=== PATIENT | female | born 1945 | race Caucasian/White ===

== ENCOUNTER → 2022-11-25 13:16 | Outpatient (BNVA) | payer MEDICARE, SELFPAY | PROVIDERS: PCP Internal Medicine; Visit Provider Nurse Practitioner Family | DX: R05.3 Chronic cough (principal); R06.09 Other forms of dyspnea; J45.909 Unspecified asthma, uncomplicated; G47.33 Obstructive sleep apnea (adult) (pediatric); R76.8 Other specified abnormal immunological findings in serum; Z87.891 Personal history of nicotine dependence; Z99.89 Dependence on other enabling machines and devices | CPT/HCPCS: 99202 ==

== ENCOUNTER 2022-12-02 10:30 | Outpatient (REF) | payer MEDICARE, SELFPAY ==
--- NOTE | 2022-12-02 | PFT_ITS ---
Forced vital capacity 89%, FEV1 90%, FEV1 over FVC ratio is 76. MGA80-21, 96% and MVV is 68%. Post bronchodilator therapy, there is no change. Total lung capacity could not be performed due to lack of adequate maneuver, SVC is 94%. DLCO 58% and DL/VA is 61%. CLINICAL IMPRESSION: Spirometry findings are normal, except for slight decrease in maximal voluntary ventilation. No evidence of any obstructive or restrictive pulmonary disorder. Decreased diffusing capacity of lungs for carbon monoxide is probably due to technical reason or secondary to non pulmonary factors. For this, clinical correlation is recommended. MD EVELIO Donnelly/AZAM / [id number]
== END 2022-12-02 10:31 | disposition home or self-care (01) ==
LOC: HO.RESP 10:30
PROVIDERS: Visit Provider Nurse Practitioner Family
DX: J44.9 Chronic obstructive pulmonary disease, unspecified (principal)
CPT/HCPCS: 94060; 94727; 94729

== ENCOUNTER → 2022-12-02 10:30 | Outpatient (BNV) | payer MEDICARE, SELFPAY | PROVIDERS: Visit Provider Internal Medicine | DX: R06.09 Other forms of dyspnea (principal) | CPT/HCPCS: 94060; 94727; 94729 ==

== ENCOUNTER 2022-12-13 10:46 | Outpatient (AMB) | payer MEDICARE, SELFPAY ==
[2022-12-13 10:52] VITALS: BP 130/66; PULSE 80; O2SAT 98; BMI 29.9
--- NOTE | 2022-12-13 10:52 | MHC.OFFVIS ---
Intake Vital Signs 12/13/22 10:52 Height 5 ft 6 in Weight 185 lb 3.013 oz BMI 29.9 BP 130/66 Blood Pressure Location Lt brachial Position Sitting Pulse 80 Pulse Source Pulse Oximeter Pulse Oximetry (%) 98 Oxygen Delivery Method Room Air Intake Visit Reasons: Asthma Clinical Psychologist Private Practice Required: No Top Bottom Attaching Machine Operator: Top Bottom Attaching Machine Operator offered & declined Accompanied by: Self / Same As Patient Allergies demerol Allergy (Uncoded 12/13/22 10:53) Vomiting levoquin Allergy (Uncoded 12/13/22 10:53) rash salon pas Allergy (Uncoded 12/13/22 10:53) Blister Medication List - Last Reconciled 12/13/22 by Shahrzad Santana LPN albuterol sulfate 90 mcg/actuation 2 puffs inhalation Q4-6H PRN aspirin 81 mg PO DAILY cholecalciferol (vitamin D3) 25 mcg PO DAILY cyanocobalamin (vitamin B-12) 1,000 mcg PO DAILY duloxetine 60 mg PO DAILY folic acid 1 mg PO DAILY isosorbide mononitrate ER 60 mg PO DAILY lifitegrast 5% (Xiidra) 1 drp ophthalmic (eye) BID lorazepam 2 mg PO BEDTIME PRN pantoprazole 40 mg PO BID propranolol ER 80 mg PO DAILY rosuvastatin 20 mg PO DAILY HPI Asthma HPI Details Stephanie is a pleasant 77 year old female, minimal smoker, with underlying history of asthma, GERD, FREDIS +, MER on CPAP, and 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 Today she presents for review PFT results, report below. She reports worsening dyspnea on minimal exertion, such as performing ADLs. She was seen at [facility] ED due to persistent cough that was worsening in severity and duration. CXR was negative for any acute processes and she was prescribed Atrovent and albuterol for bronchitis. Today, she reported that she has a history of Sjogren's and has significant dry mouth which is why she has been unable to tolerate ICS in the past. She denies any recent chest CT. She also is requesting to transfer care related to her obstructive sleep apnea. She reports daytime somnolence and loud snoring when CPAP is not used. She reports no recent sleep study. [facility] Social History Patient Tobacco Use Status: Former Tobacco user Tobacco use type: Cigarette Years Smoked: Smoked for 2years intermittently. Review of Systems Const Denies chills, Denies excessive sweating, Denies fever(s), Denies headache(s) and Denies night sweats Eyes Reports dry eyes and Denies irritation ENT Reports Normal hearing present, Reports dry mouth, Denies headache(s), Denies nasal congestion, Denies nasal discharge, Denies post nasal drip and Denies sore throat Card Denies chest pain, Denies chest pain at rest, Denies chest pain with activity, Denies leg edema, Denies orthopnea and Denies paroxysmal nocturnal dyspnea Resp Denies chest congestion, Denies excessive phlegm production, Denies pain on inspiration, Denies pain with cough, Denies stridor and Denies wheezing Musc Denies myalgias, Reports arthralgias and Denies joint swelling Neuro Reports Normal hearing present and Denies headache(s) Endo Denies excessive sweating Bhaskar/Lymph Denies lymphadenopathy Aller/Immun Denies seasonal rhinorrhea and Denies wheezing Physical Exam Vital Signs: Last Vital Signs Pulse 80 12/13/22 10:52 BP 130/66 12/13/22 10:52 Pulse Ox 98 12/13/22 10:52 Oxygen Delivery Method Room Air 12/13/22 10:52 BMI result Body Mass Index 29.9 Const General: cooperative, healthy appearing, comfortable, no acute distress, well developed and alert Orientation/consciousness: patient oriented x3 Limitations: no limitations HEENT Head: Yes normal to inspection, Yes normocephalic and Yes atraumatic Ears: hearing grossly normal bilaterally and external ears normal Eyes General: appearance normal, both eyes and all related structures Eyelids: Yes eyelids normal Sclerae: sclerae normal EOM: EOMs intact bilaterally Neck Neck: Yes normal visual inspection and Yes no lymphadenopathy Lymphatic: no lymphadenopathy noted Chest Chest palpation & inspection: normal inspection of the chest Resp Other: fine inspiratory crackles at bilateral bases Effort & Inspection: normal respiratory effort, able to speak in complete sentences, no audible wheezes, no cough, no stridor, not tachypneic, no tripod positioning and no use of accessory muscles Cardio Jugular venous distension: no JVD Rate: regular rate Rhythm: regular rhythm Skin Other: warm, dry General skin exam: no rashes or lesions noted Neuro General: patient oriented x3 Cranial nerves: Yes Normal hearing present Cognition (Neuro): normal cognition Gait exam (Neuro): Normal gait present Extrem General: Yes normal to inspection, Yes capillary refill normal, Yes no clubbing, cyanosis or edema and Yes no pedal edema Psych Appearance: grossly normal and well kempt Speech and movement: Normal speech and movement present and Clear speech present Affect: normal affect Attitude: cooperative Thought process: Normal thought process present Thought content: Normal thought content present Insight: Good insight present (Psych) Judgement: Good judgement present (Psych) Office Procedures 6 Minute Walk Time:: 11:35 SPO2 % at rest: 96 Pulse at rest: 68 SPO2 % during excercise: 96 Pulse during excercise: 82 SPO2 % after excercise: 97 Pulse after excercise: 86 Distance in yards walked: 75 Doris Score: 5 Performance Observations:: Patient walked on level ground at a moderate pace with the assistance of a cane for 75 yards. Maintained SPO2 of 96-97% and pulse rate 78-82. Patient mentions she was feeling short of breath with distance walking. No supplemental O2 needed. [address]143 - 6 Minute Walk Results Reviewed Results Reviewed: Assessment & Plan Assessment & Plan (1) Dyspnea on exertion: Code(s): R06.09 - Other forms of dyspnea (2) Sjogren's disease: Code(s): M35.00 - Sjogren syndrome, unspecified (3) Cough: Code(s): R05.9 - Cough, unspecified (4) Daytime somnolence: Code(s): R40.0 - Somnolence Plan Since the last visit, Stephanie did report some improvement in the frequency of her cough and noted dyspnea on exertion is most troublesome. Performed 6MWT and patient does not qualify for oxygen at this time. She does check her oxygen saturation at home and reports the lowest has been 92%. Reviewed PFT which revealed no obstructive or restrictive defect but does have a decreased DLCO of 58. We discussed the possibility of her symptoms being related to sjogren's and possible ILD, as she had inspiratory faint crackles on exam. Will send for lab work as well as chest CT to thoroughly evaluate. We reviewed different inhalers to trial empirically, but hesitant due to prior history of thrush despite good oral hygiene. She reported issues with prior sleep clinic and would like to continue care here. Due to her significant day time somnolence, will send for new home sleep study. Will follow up after to review results. All questions were answered and patient is in agreement of plan. Orders: Orders Anti DNA DS Antibody 12/13/22 M35.00 - Sjogren syndrome, unspecified Sjogren's Antibodies 12/13/22 M35.00 - Sjogren syndrome, unspecified Scleroderma 70 Antibody 12/13/22 M35.00 - Sjogren syndrome, unspecified, R76.8 - Other specified abnormal immunological findings in serum CT chest wo IV con 12/13/22 J84.9 - Interstitial pulmonary disease, unspecified RT home sleep study Today R40.0 - Somnolence AMB 6 minute walk 12/13/22 R06.09 - Other forms of dyspnea Coding Level of Care Code Est Pt Level 4 (63107) Diagnoses Dyspnea on exertion R06.09 Sjogren's disease M35.00 Cough R05.9 Daytime somnolence R40.0 CPT Codes Coding ([id number])
[2022-12-13 11:49] VITALS: PULSE 68; O2SAT 96
== END 2022-12-13 12:18 | disposition home or self-care (01) ==
PROVIDERS: PCP Internal Medicine; Visit Provider Nurse Practitioner Family
DX: R06.02 Shortness of breath (principal)
CPT/HCPCS: 94618; 99214

== ENCOUNTER → 2022-12-13 10:46 | Outpatient (BNVA) | payer MEDICARE, SELFPAY | PROVIDERS: PCP Internal Medicine; Visit Provider Nurse Practitioner Family | DX: M35.00 Sjogren syndrome, unspecified (principal); R06.09 Other forms of dyspnea; R05.9 Cough, unspecified; R40.0 Somnolence | CPT/HCPCS: 94618; 99212 ==

== ENCOUNTER 2023-01-02 10:19 | Outpatient (REF) | payer MEDICARE, SELFPAY ==
[2023-01-03 13:48] LABS: Anti DNA DS Antibody <1 IU/mL; Antibody to SS-A Antigen <1.0 NEG AI (<1.0 NEG); Antibody to SS-B Antigen <1.0 NEG AI (<1.0 NEG); Scleroderma 70 Antibody <1.0 NEG AI (<1.0 NEG)
== END 2023-01-02 10:20 | disposition home or self-care (01) ==
LOC: HO.LAB 10:19
PROVIDERS: PCP Internal Medicine; Visit Provider Nurse Practitioner Family
DX: M35.00 Sjogren syndrome, unspecified (principal); R76.8 Other specified abnormal immunological findings in serum
CPT/HCPCS: 36415; 86225; 86235

== ENCOUNTER 2023-01-18 08:23 | Outpatient (REF) | payer MEDICARE, SELFPAY ==
--- NOTE | ~2023-01-18 | CT_ITS ---
EXAMINATION: CT CHEST HIGH RESOLUTION CLINICAL INFORMATION: Interstitial lung disease. COMPARISON: None available. TECHNIQUE: Using a multidetector device, helical inspiratory views of the chest were done without contrast. Expiratory views were done using high-resolution technique. Reformatting was done in the coronal and parasagittal planes. Axial MIP volume rendering provided. This CT examination was performed using dose optimization techniques as appropriate, variously including the following: *Automated exposure control *Adjustment of mA and/or kV according to patient size (this includes techniques or standardized protocols for targeted exams where dose is matched to indication/reason for exam; i.e. 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 There are no enlarged mediastinal or hilar lymph nodes. There is no pericardial or significant pleural fluid. There is minimal coronary artery calcification. There is no abnormality of the central airways. There is no evidence of bronchiectasis. There is no generalized thickening of the interlobular septi. There is no pleural thickening. There are no significant cystic spaces. There is no evidence of medium or small airway thickening. There are no linear bands or abnormal reticular opacities. There is some trace density adjacent to the dependent lower chest which may be atelectasis. There is no ground-glass disease. Calcification is present along the dome of the liver. The adrenal glands appear unremarkable. The gallbladder has been surgically removed. CT/CT chest wo IV con IMPRESSION: No evidence of interstitial lung disease.
== END 2023-01-18 08:24 | disposition home or self-care (01) ==
LOC: HO.CT 08:23
PROVIDERS: PCP Internal Medicine; Visit Provider Nurse Practitioner Family
DX: J84.9 Interstitial pulmonary disease, unspecified (principal); R40.0 Somnolence; G47.33 Obstructive sleep apnea (adult) (pediatric)
CPT/HCPCS: 71250

== ENCOUNTER 2023-01-24 10:56 | Outpatient (AMB) | payer MEDICARE, SELFPAY ==
[2023-01-24 10:59] VITALS: BP 137/62; PULSE 67; O2SAT 95; BMI 29.7
--- NOTE | 2023-01-24 10:59 | A.OFFVIS_ITS ---
Intake Vital Signs 01/24/23 10:59 Height 5 ft 6 in Weight 184 lb 1.376 oz BMI 29.7 BP 137/62 Blood Pressure Location Rt brachial Position Sitting Pulse 67 Pulse Source Doppler Pulse Oximetry (%) 95 Oxygen Delivery Method Room Air Intake Visit Reasons: asthma Allergies demerol Allergy (Uncoded 12/13/22 10:53) Vomiting levoquin Allergy (Uncoded 12/13/22 10:53) rash salon pas Allergy (Uncoded 12/13/22 10:53) Blister HPI asthma HPI Details Stephanie is a pleasant 77 year old female, minimal smoker, with underlying history of asthma, GERD, FREDIS +, Sjogren's, MER on CPAP. Since the last visit, she has been using Breo with significant improvements in shortness of breath as well as cough. Initially she did not want to trial an ICS due to multiple occurrences of thrush in the past. She states her PCP prescribes daily flucon azole and has been practicing good oral hygiene. Today she presents to review results of chest CT. She also had a sleep study performed but report is not available at this time. She has been using CPAP therapy and uses [employer] for her [employer]. [facility] Social History Patient Tobacco Use Status: Former Tobacco user Tobacco use type: Cigarette Years Smoked: Smoked for 2years intermittently. Review of Systems Const Denies chills, Denies excessive sweating, Denies fever(s), Denies headache(s) and Denies night sweats Eyes Reports dry eyes and Denies irritation ENT Reports Normal hearing present, Reports dry mouth, Denies headache(s), Denies nasal congestion, Denies nasal discharge, Denies post nasal drip and Denies sore throat Card Denies chest pain, Denies chest pain at rest, Denies chest pain with activity, Denies leg edema, Denies orthopnea and Denies paroxysmal nocturnal dyspnea Resp Denies chest congestion, Denies excessive phlegm production, Denies pain on inspiration, Denies pain with cough, Denies stridor and Denies wheezing Musc Denies myalgias, Reports arthralgias and Denies joint swelling Neuro Reports Normal hearing present and Denies headache(s) Endo Denies excessive sweating Bhaskar/Lymph Denies lymphadenopathy Aller/Immun Denies seasonal rhinorrhea and Denies wheezing Physical Exam Vital Signs: Last Vital Signs Pulse 67 01/24/23 10:59 BP 137/62 01/24/23 10:59 Pulse Ox 95 01/24/23 10:59 Oxygen Delivery Method Room Air 01/24/23 10:59 BMI result Body Mass Index 29.7 Const General: cooperative, healthy appearing, comfortable, no acute distress, well developed and alert Orientation/consciousness: patient oriented x3 Limitations: no limitations HEENT Head: Yes normal to inspection, Yes normocephalic and Yes atraumatic Ears: hearing grossly normal bilaterally and external ears normal Eyes General: appearance normal, both eyes and all related structures Eyelids: Yes eyelids normal Sclerae: sclerae normal EOM: EOMs intact bilaterally Neck Neck: Yes normal visual inspection and Yes no lymphadenopathy Lymphatic: no lymphadenopathy noted Chest Chest palpation & inspection: normal inspection of the chest Resp Effort & Inspection: normal respiratory effort, able to speak in complete sentences, no audible wheezes, no cough, no stridor, not tachypneic, no tripod positioning and no use of accessory muscles Cardio Jugular venous distension: no JVD Rate: regular rate Rhythm: regular rhythm Skin Other: warm, dry General skin exam: no rashes or lesions noted Neuro General: patient oriented x3 Cranial nerves: Yes Normal hearing present Cognition (Neuro): normal cognition Gait exam (Neuro): Normal gait present Extrem General: Yes normal to inspection, Yes capillary refill normal, Yes no clubbing, cyanosis or edema and Yes no pedal edema Psych Appearance: grossly normal and well kempt Speech and movement: Normal speech and movement present and Clear speech present Affect: normal affect Attitude: cooperative Thought process: Normal thought process present Thought content: Normal thought content present Insight: Good insight present (Psych) Judgement: Good judgement present (Psych) Results Reviewed Results Reviewed: [address] [address] [address] Scan Report Signed Patient: Stephanie Biswas MR#: [id number] : 1945 Acct:[id number] Age/Sex: 77 / F ADM Date: 01/18/23 Loc: HO.CT Attending Dr: Dannielle Covington CASHIER PAYMENTS RECEIVED Ordering Physician: Dannielle Covington NP Date of Service: 01/18/23 Procedure(s): CT chest wo IV con Accession Number(s): [id number] cc: Dannielle Covington CASHIER PAYMENTS RECEIVED~ EXAMINATION: CT CHEST HIGH RESOLUTION CLINICAL INFORMATION: Interstitial lung disease. COMPARISON: None available. TECHNIQUE: Using a multidetector device, helical inspiratory views of the chest were done without contrast. Expiratory views were done using high-resolution technique. Reformatting was done in the coronal and parasagittal planes. Axial MIP volume rendering provided.? This CT examination was performed using dose optimization techniques as appropriate, variously including the following: *Automated exposure control *Adjustment of mA and/or kV according to patient size (this includes techniques or standardized protocols for targeted exams where dose is matched to indication/reason for exam; i.e. 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 There are no enlarged mediastinal or hilar lymph nodes. There is no pericardial or significant pleural fluid. There is minimal coronary artery calcification. There is no abnormality of the central airways. There is no evidence of bronchiectasis. There is no generalized thickening of the interlobular septi. There is no pleural thickening. There are no significant cystic spaces. There is no evidence of medium or small airway thickening. There are no linear bands or abnormal reticular opacities. There is some trace density adjacent to the dependent lower chest which may be atelectasis. There is no ground-glass disease.? Calcification is present along the dome of the liver. The adrenal glands appear unremarkable. The gallbladder has been surgically removed. CT/CT chest wo IV con IMPRESSION: No evidence of interstitial lung disease. Assessment & Plan Assessment & Plan (1) Asthma: Code(s): J45.909 - Unspecified asthma, uncomplicated (2) Obstructive sleep apnea: Code(s): G47.33 - Obstructive sleep apnea (adult) (pediatric) (3) Sjogren's disease: Code(s): M35.00 - Sjogren syndrome, unspecified Plan Stephanie has been using Breo with good symptomatic control and denies any concerns of thrush. Will continue current regimen. Reviewed chest CT, which did not reveal any concerning nodules, consolidations or fibrosis. Full report above. She also underwent a sleep study but unfortunately the report is not available. Will call patient with results. She is currently using CPAP therapy that she has been using for over 5 years, prescribed by [facility] pulmonary and has supplies through [employer]. Will obtain compliance report. All questions were answered and patient is in agreement of plan. Will follow up in three months or sooner if needed. Coding Level of Care Code Est Pt Level 4 (45266) Diagnoses Asthma J45.909 Obstructive sleep apnea G47.33 Sjogren's disease M35.00
== END 2023-01-24 11:51 | disposition home or self-care (01) ==
PROVIDERS: PCP Internal Medicine; Visit Provider Nurse Practitioner Family
DX: J45.909 Unspecified asthma, uncomplicated (principal); G47.33 Obstructive sleep apnea (adult) (pediatric); M35.00 Sjogren syndrome, unspecified
CPT/HCPCS: 99214

== ENCOUNTER → 2023-01-24 10:56 | Outpatient (BNVA) | payer MEDICARE, SELFPAY | PROVIDERS: PCP Internal Medicine; Visit Provider Nurse Practitioner Family | DX: J45.909 Unspecified asthma, uncomplicated (principal); G47.33 Obstructive sleep apnea (adult) (pediatric); M35.00 Sjogren syndrome, unspecified; Z99.89 Dependence on other enabling machines and devices | CPT/HCPCS: 99212 ==

== ENCOUNTER 2023-04-25 11:32 | Outpatient (AMB) | payer MEDICARE, SELFPAY ==
[2023-04-25 11:32] VITALS: BP 114/62; PULSE 71; O2SAT 96; BMI 29.7
--- NOTE | 2023-04-25 11:32 | A.OFFVIS_ITS ---
Intake Vital Signs 04/25/23 11:32 Height 5 ft 6 in Weight 184 lb BMI 29.7 BP 114/62 Blood Pressure Location Lt brachial Position Sitting Pulse 71 Pulse Source Pulse Oximeter Pulse Oximetry (%) 96 Oxygen Delivery Method Room Air Intake Visit Reasons: Asthma Foreign Exchange Dealer Required: No Institutional Aide: Institutional Aide offered & declined Accompanied by: Self / Same As Patient Allergies demerol Allergy (Uncoded 04/25/23 11:39) Vomiting levoquin Allergy (Uncoded 04/25/23 11:39) rash salon pas Allergy (Uncoded 04/25/23 11:39) Blister Medication List - Last Reconciled 04/25/23 by Shahrzad Santana LPN albuterol sulfate 90 mcg/actuation 2 puffs inhalation Q4-6H PRN aspirin 81 mg PO DAILY azithromycin For 250 mg dose pack: take 500 mg today (day 1), then 250 mg for 4 days (days 2-5) PO cholecalciferol (vitamin D3) 25 mcg PO DAILY cyanocobalamin (vitamin B-12) 1,000 mcg PO DAILY duloxetine 60 mg PO DAILY fluconazole 100 mg PO DAILY fluticasone furoate-vilanterol 100-25 mcg/dose 1 ea PO DAILY folic acid 1 mg PO DAILY isosorbide mononitrate ER 60 mg PO DAILY lifitegrast 5% (Xiidra) 1 drp ophthalmic (eye) BID lorazepam 2 mg PO BEDTIME PRN nortriptyline 75 mg PO BEDTIME pantoprazole 40 mg PO BID propranolol ER 80 mg PO DAILY rosuvastatin 20 mg PO DAILY HPI Asthma HPI Details Stephanie is a pleasant 77 year old female, minimal smoker, with underlying history of asthma, GERD, FREDIS +, Sjogren's, MER on CPAP. At baseline she has been using Breo with good effect and has been compliant with CPAP therapy. She denies any respiratory symptoms at this time. [facility] Social History (Updated 04/25/23 @ 11:53 by Shahrzad Santana LPN) Patient Tobacco Use Status: Former Tobacco user Tobacco use type: Cigarette Years Smoked: Smoked for 2years intermittently. Review of Systems Const Denies chills, Denies excessive sweating, Denies fever(s), Denies headache(s) and Denies night sweats Eyes Reports dry eyes and Denies irritation ENT Reports Normal hearing present, Reports dry mouth, Denies headache(s), Denies nasal congestion, Denies nasal discharge, Denies post nasal drip and Denies sore throat Card Denies chest pain, Denies chest pain at rest, Denies chest pain with activity, Denies leg edema, Denies orthopnea and Denies paroxysmal nocturnal dyspnea Resp Denies chest congestion, Denies excessive phlegm production, Denies pain on inspiration, Denies pain with cough, Denies stridor and Denies wheezing Musc Denies myalgias, Reports arthralgias and Denies joint swelling Neuro Reports Normal hearing present and Denies headache(s) Endo Denies excessive sweating Bhaskar/Lymph Denies lymphadenopathy Aller/Immun Denies seasonal rhinorrhea and Denies wheezing Physical Exam Vital Signs: Last Vital Signs Pulse 71 04/25/23 11:32 BP 114/62 04/25/23 11:32 Pulse Ox 96 04/25/23 11:32 Oxygen Delivery Method Room Air 04/25/23 11:32 BMI result Body Mass Index 29.7 Const General: cooperative, healthy appearing, comfortable, no acute distress, well developed and alert Orientation/consciousness: patient oriented x3 Limitations: no limitations HEENT Head: Yes normal to inspection, Yes normocephalic and Yes atraumatic Ears: hearing grossly normal bilaterally and external ears normal Eyes General: appearance normal, both eyes and all related structures Eyelids: Yes eyelids normal Sclerae: sclerae normal EOM: EOMs intact bilaterally Neck Neck: Yes normal visual inspection and Yes no lymphadenopathy Lymphatic: no lymphadenopathy noted Chest Chest palpation & inspection: normal inspection of the chest Resp Effort & Inspection: normal respiratory effort, able to speak in complete sentences, no audible wheezes, no cough, no stridor, not tachypneic, no tripod positioning and no use of accessory muscles Cardio Jugular venous distension: no JVD Rate: regular rate Rhythm: regular rhythm Skin Other: warm, dry General skin exam: no rashes or lesions noted Neuro General: patient oriented x3 Cranial nerves: Yes Normal hearing present Cognition (Neuro): normal cognition Gait exam (Neuro): Normal gait present Extrem General: Yes normal to inspection, Yes capillary refill normal, Yes no clubbing, cyanosis or edema and Yes no pedal edema Psych Appearance: grossly normal and well kempt Speech and movement: Normal speech and movement present and Clear speech present Affect: normal affect Attitude: cooperative Thought process: Normal thought process present Thought content: Normal thought content present Insight: Good insight present (Psych) Judgement: Good judgement present (Psych) Assessment & Plan Assessment & Plan (1) Asthma: Code(s): J45.909 - Unspecified asthma, uncomplicated (2) Obstructive sleep apnea: Code(s): G47.33 - Obstructive sleep apnea (adult) (pediatric) (3) Sjogren's disease: Code(s): M35.00 - Sjogren syndrome, unspecified Plan Stephanie continues to use Breo with good symptomatic control and denies any concerns of thrush. Will continue current regimen. She is currently using CPAP therapy that she has been using for over 5 years, prescribed by [facility] pulmonary and has supplies through [employer]. She will transferring care of MER to this office. Reviewed compliance report and patient has been using >4 hours for greater than 70% of the time without significant leaks. AHI <1. All questions were answered and patient is in agreement of plan. Will follow up in six months or sooner if needed. Coding Level of Care Code Est Pt Level 3 (20168) Diagnoses Asthma J45.909 Obstructive sleep apnea G47.33 Sjogren's disease M35.00
== END 2023-04-25 12:02 | disposition home or self-care (01) ==
PROVIDERS: PCP Internal Medicine; Visit Provider Nurse Practitioner Family
DX: J45.909 Unspecified asthma, uncomplicated (principal); G47.33 Obstructive sleep apnea (adult) (pediatric); M35.00 Sjogren syndrome, unspecified
CPT/HCPCS: 99213

== ENCOUNTER → 2023-04-25 11:32 | Outpatient (BNVA) | payer MEDICARE, SELFPAY | PROVIDERS: PCP Internal Medicine; Visit Provider Nurse Practitioner Family | DX: J45.909 Unspecified asthma, uncomplicated (principal); G47.33 Obstructive sleep apnea (adult) (pediatric); M35.00 Sjogren syndrome, unspecified | CPT/HCPCS: 99212 ==

== ENCOUNTER 2023-11-01 10:25 | Outpatient (AMB) | payer MEDICARE, SELFPAY ==
--- NOTE | 2023-11-01 10:28 | MHC.OFFVIS ---
Vital Signs 11/01/23 10:29 Height 5 ft 6 in Weight 179 lb 8 oz BMI 29.0 BP 100/58 L Blood Pressure Location Rt brachial Position Sitting Pulse 71 Pulse Source Pulse Oximeter Pulse Oximetry (%) 95 Oxygen Delivery Method Room Air Intake Visit Reasons: Asthma Allergies demerol Allergy (Uncoded 11/01/23 10:32) Vomiting levoquin Allergy (Uncoded 11/01/23 10:32) rash salon pas Allergy (Uncoded 11/01/23 10:32) Blister HPI HPI Asthma: Details: Stephanie is a pleasant 78 year old female, minimal smoker, with underlying history of asthma, GERD, FREDIS +, Sjogren's, MER on CPAP. At baseline she has been using Breo with good effect and has been compliant with CPAP therapy. She denies any respiratory symptoms at this time. Today she presents for a routine follow up. Since the last visit she denies any visits to urgent care or hospitalizations related to respiratory symptoms. [facility] Social History Patient Tobacco Use Status: Former Tobacco user Tobacco use type: Cigarette Years Smoked: Smoked for 2years intermittently. Review of Systems Const Denies chills, Denies excessive sweating, Denies fever(s), Denies headache(s) and Denies night sweats Eyes Reports dry eyes and Denies irritation ENT Reports Normal hearing present, Reports dry mouth, Denies headache(s), Denies nasal congestion, Denies nasal discharge, Denies post nasal drip and Denies sore throat Card Denies chest pain, Denies chest pain at rest, Denies chest pain with activity, Denies leg edema, Denies orthopnea and Denies paroxysmal nocturnal dyspnea Resp Denies chest congestion, Denies excessive phlegm production, Denies pain on inspiration, Denies pain with cough, Denies stridor and Denies wheezing Musc Denies myalgias, Reports arthralgias and Denies joint swelling Neuro Reports Normal hearing present and Denies headache(s) Endo Denies excessive sweating Bhaskar/Lymph Denies lymphadenopathy Aller/Immun Denies seasonal rhinorrhea and Denies wheezing Physical Exam Vital Signs: Last Vital Signs Pulse 71 11/01/23 10:29 BP 100/58 L 11/01/23 10:29 Pulse Ox 95 11/01/23 10:29 Oxygen Delivery Method Room Air 11/01/23 10:29 BMI result Body Mass Index 29.0 Const General: cooperative, healthy appearing, comfortable, no acute distress, well developed and alert Orientation/consciousness: patient oriented x3 Limitations: no limitations HEENT Head: Yes normal to inspection, Yes normocephalic and Yes atraumatic Ears: hearing grossly normal bilaterally and external ears normal Eyes General: appearance normal, both eyes and all related structures Eyelids: Yes eyelids normal Sclerae: sclerae normal EOM: EOMs intact bilaterally Neck Neck: Yes normal visual inspection and Yes no lymphadenopathy Lymphatic: no lymphadenopathy noted Chest Chest palpation & inspection: normal inspection of the chest Resp Effort & Inspection: normal respiratory effort, able to speak in complete sentences, no audible wheezes, no cough, no stridor, not tachypneic, no tripod positioning and no use of accessory muscles Cardio Jugular venous distension: no JVD Rate: regular rate Rhythm: regular rhythm Skin Other: warm, dry General skin exam: no rashes or lesions noted Neuro General: patient oriented x3 Cranial nerves: Yes Normal hearing present Cognition (Neuro): normal cognition Gait exam (Neuro): Normal gait present Extrem General: Yes normal to inspection, Yes capillary refill normal, Yes no clubbing, cyanosis or edema and Yes no pedal edema Psych Appearance: grossly normal and well kempt Speech and movement: Normal speech and movement present and Clear speech present Affect: normal affect Attitude: cooperative Thought process: Normal thought process present Thought content: Normal thought content present Insight: Good insight present (Psych) Judgement: Good judgement present (Psych) Assessment & Plan Assessment & Plan (1) Asthma: Code(s): J45.909 - Unspecified asthma, uncomplicated Category: Medical (2) Obstructive sleep apnea: Code(s): G47.33 - Obstructive sleep apnea (adult) (pediatric) Category: Medical (3) Sjogren's disease: Code(s): M35.00 - Sjogren syndrome, unspecified Category: Medical Plan Stephanie reports good symptomatic control with Breo and albuterol MDI, advised to continue. Will send in refills. Reviewed compliance report and patient has been 100% compliant, using almost 7 hours per night. Minimal leaking recorded and AHI less than 2. Advised to continue CPAP therapy and to call the office if any issues arise. All questions were answered and patient is in agreement of plan. Will follow up in six months or sooner if needed. Medications: Changed From fluticasone furoate-vilanterol 100-25 mcg/dose 1 ea PO DAILY 3 ea 3RF To fluticasone furoate-vilanterol 100-25 mcg/dose 1 ea inhalation DAILY 3 ea 2RF Refilled albuterol sulfate 90 mcg/actuation 2 puffs inhalation Q4-6H PRN 1 ea 3RF shortness of breath or wheezing Coding Level of Care Code Est Pt Level 3 (84917) Diagnoses Asthma J45.909 Obstructive sleep apnea G47.33 Sjogren's disease M35.00
[2023-11-01 10:29] VITALS: BP 100/58; PULSE 71; O2SAT 95; BMI 29.0
== END 2023-11-01 10:55 | disposition home or self-care (01) ==
PROVIDERS: PCP Internal Medicine; Visit Provider Nurse Practitioner Family
DX: J45.909 Unspecified asthma, uncomplicated (principal); G47.33 Obstructive sleep apnea (adult) (pediatric); M35.00 Sjogren syndrome, unspecified
CPT/HCPCS: 99213

== ENCOUNTER → 2023-11-01 10:25 | Outpatient (BNVA) | payer MEDICARE, SELFPAY | PROVIDERS: PCP Internal Medicine; Visit Provider Nurse Practitioner Family | DX: J45.909 Unspecified asthma, uncomplicated (principal); M35.00 Sjogren syndrome, unspecified; G47.33 Obstructive sleep apnea (adult) (pediatric); Z99.89 Dependence on other enabling machines and devices | CPT/HCPCS: 99212 ==

== ENCOUNTER 2024-04-10 09:45 | Outpatient (AMB) | payer MEDICARE, SELFPAY ==
[2024-04-10 09:48] VITALS: BP 104/56; PULSE 84; O2SAT 96; BMI 29.0
--- NOTE | 2024-04-10 09:48 | A.OFFVIS_ITS ---
Vital Signs 04/10/24 09:48 Height 5 ft 6 in Weight 180 lb BMI 29.0 BP 104/56 L Blood Pressure Location Rt brachial Position Sitting Pulse 84 Pulse Source Pulse Oximeter Pulse Oximetry (%) 96 Oxygen Delivery Method Room Air Intake Visit Reasons: Asthma Allergies demerol Allergy (Uncoded 04/10/24 09:51) Vomiting levoquin Allergy (Uncoded 04/10/24 09:51) rash salon pas Allergy (Uncoded 04/10/24 09:51) Blister HPI HPI Asthma: Details: Stephanie is a pleasant 78 year old female, former minimal smoker, with underlying history of asthma, GERD, FREDIS +, Sjogren's, MER on CPAP. She has been doing moderately well on Breo and albuterol MDI PRN. She has been compliant with CPAP therapy. She does report that symptoms have been less controlled and questioning worsening symptoms related to underlying autoimmune condition. Since the last visit she denies any visits to urgent care or hospitalizations related to respiratory symptoms. [facility] Social History (Reviewed 11/01/23 @ 10:31 by Ruby Butcher [facility]) Patient Tobacco Use Status: Former Tobacco user Tobacco use type: Cigarette Years Smoked: Smoked for 2years intermittently. Review of Systems Const Denies chills, Denies excessive sweating, Denies fever(s), Denies headache(s) and Denies night sweats Eyes Reports dry eyes and Denies irritation ENT Reports Normal hearing present, Reports dry mouth, Denies headache(s), Denies nasal congestion, Denies nasal discharge, Denies post nasal drip and Denies sore throat Card Denies chest pain, Denies chest pain at rest, Denies chest pain with activity, Denies leg edema, Denies orthopnea and Denies paroxysmal nocturnal dyspnea Resp Denies chest congestion, Denies excessive phlegm production, Denies pain on inspiration, Denies pain with cough, Denies stridor and Denies wheezing Musc Denies myalgias, Reports arthralgias and Denies joint swelling Neuro Reports Normal hearing present and Denies headache(s) Endo Denies excessive sweating Bhaskar/Lymph Denies lymphadenopathy Aller/Immun Denies seasonal rhinorrhea and Denies wheezing Physical Exam Vital Signs: Last Vital Signs Pulse 84 04/10/24 09:48 BP 104/56 L 04/10/24 09:48 Pulse Ox 96 04/10/24 09:48 Oxygen Delivery Method Room Air 04/10/24 09:48 BMI result Body Mass Index 29.0 Const General: cooperative, healthy appearing, comfortable, no acute distress, well developed and alert Orientation/consciousness: patient oriented x3 Limitations: no limitations HEENT Head: Yes normal to inspection, Yes normocephalic and Yes atraumatic Ears: hearing grossly normal bilaterally and external ears normal Eyes General: appearance normal, both eyes and all related structures Eyelids: Yes eyelids normal Sclerae: sclerae normal EOM: EOMs intact bilaterally Neck Neck: Yes normal visual inspection and Yes no lymphadenopathy Lymphatic: no lymphadenopathy noted Chest Chest palpation & inspection: normal inspection of the chest Resp Effort & Inspection: normal respiratory effort, able to speak in complete sentences, no audible wheezes, no stridor, not tachypneic, no tripod positioning and no use of accessory muscles Cardio Jugular venous distension: no JVD Rate: regular rate Rhythm: regular rhythm Skin Other: warm, dry General skin exam: no rashes or lesions noted Neuro General: patient oriented x3 Cranial nerves: Yes Normal hearing present Cognition (Neuro): normal cognition Gait exam (Neuro): Normal gait present Extrem General: Yes normal to inspection, Yes capillary refill normal, Yes no clubbing, cyanosis or edema and Yes no pedal edema Psych Appearance: grossly normal and well kempt Speech and movement: Normal speech and movement present and Clear speech present Affect: normal affect Attitude: cooperative Thought process: Normal thought process present Thought content: Normal thought content present Insight: Good insight present (Psych) Judgement: Good judgement present (Psych) Assessment & Plan Assessment & Plan (1) Asthma: Code(s): J45.909 - Unspecified asthma, uncomplicated Category: Medical (2) Obstructive sleep apnea: Code(s): G47.33 - Obstructive sleep apnea (adult) (pediatric) Category: Medical (3) Sjogren's disease: Code(s): M35.00 - Sjogren syndrome, unspecified Category: Medical Plan Discussed increasing Breo however patient would like to hold off as she tends to develop thrush with increased steroid use. Given her h/o Sjogren's, will send for repeat chest CT to assess for any evolving ILD contributing to worsening respiratory symptoms. Reviewed compliance report and patient has been using >4 hours for 93%, with AHI 1.7 and minimal leaking. Advised to continue. All questions were answered and patient is in agreement of plan. Will follow up to review results or sooner if needed. Orders: Orders CT chest wo IV con Today M35.00 - Sjogren syndrome, unspecified, R05.9 - Cough, unspecified Coding Level of Care Code Est Pt Level 4 (79119) Diagnoses Asthma J45.909 Obstructive sleep apnea G47.33 Sjogren's disease M35.00
== END 2024-04-10 10:17 | disposition home or self-care (01) ==
PROVIDERS: PCP Internal Medicine; Visit Provider Nurse Practitioner Family
DX: J45.909 Unspecified asthma, uncomplicated (principal); G47.33 Obstructive sleep apnea (adult) (pediatric); M35.00 Sjogren syndrome, unspecified
CPT/HCPCS: 99214

== ENCOUNTER → 2024-04-10 09:45 | Outpatient (BNVA) | payer MEDICARE, SELFPAY | PROVIDERS: PCP Internal Medicine; Visit Provider Nurse Practitioner Family | DX: J45.909 Unspecified asthma, uncomplicated (principal); G47.33 Obstructive sleep apnea (adult) (pediatric); M35.00 Sjogren syndrome, unspecified; Z87.891 Personal history of nicotine dependence; Z99.89 Dependence on other enabling machines and devices | CPT/HCPCS: 99212 ==

== ENCOUNTER 2024-07-26 10:19 | Outpatient (AMB) | payer MEDICARE, SELFPAY ==
[2024-07-26 10:22] VITALS: BP 124/62; PULSE 68; O2SAT 97; BMI 27.1
--- NOTE | 2024-07-26 10:22 | MHC.OFFVIS ---
Vital Signs 07/26/24 10:22 Height 5 ft 6 in Weight 168 lb BMI 27.1 BP 124/62 Blood Pressure Location Rt brachial Position Sitting Pulse 68 Pulse Source Pulse Oximeter Pulse Oximetry (%) 97 Oxygen Delivery Method Room Air Intake Visit Reasons: Asthma On [employer] Superintendent Required: No [employer]: [employer] offered & declined Accompanied by: Self / Same As Patient Allergies demerol Allergy (Uncoded 07/26/24 10:27) Vomiting levoquin Allergy (Uncoded 07/26/24 10:27) rash salon pas Allergy (Uncoded 07/26/24 10:27) Blister Medication List - Last Reconciled 07/26/24 by Shahrzad Santaan, KRISTIAN albuterol sulfate 90 mcg/actuation 2 puffs inhalation Q4-6H PRN aspirin 81 mg PO DAILY cholecalciferol (vitamin D3) 25 mcg PO DAILY cyanocobalamin (vitamin B-12) 1,000 mcg PO DAILY duloxetine 60 mg PO DAILY fluconazole 100 mg PO DAILY fluticasone furoate-vilanterol 100-25 mcg/dose 1 ea inhalation DAILY folic acid 1 mg PO DAILY isosorbide mononitrate ER 60 mg PO DAILY lifitegrast 5% (Xiidra) 1 drp ophthalmic (eye) BID lorazepam 2 mg PO BEDTIME PRN nortriptyline 75 mg PO BEDTIME pantoprazole 40 mg PO BID propranolol ER 80 mg PO DAILY rosuvastatin 20 mg PO DAILY vibegron (Gemtesa) 75 mg PO DAILY HPI HPI Asthma: Details: Stephanie is a pleasant 78 year old female, former minimal smoker, with underlying history of asthma, GERD, FREDIS +, Sjogren's, MER on CPAP. She has been doing moderately well on Breo and albuterol MDI PRN. She continues to report dyspnea on exertion and coughing fits that respond well to albuterol. Not interested in increasing Breo at this time. She has been compliant with CPAP therapy and presents today to review report. She also notes that she will be due for a new CPAP machine in September, requesting prescription to be sent to [facility]. She has been using for many years, compliant and benefitting from therapy. Since the last visit she denies any visits to urgent care or hospitalizations related to respiratory symptoms. She was evaluated at [facility] ED s/p fall where CTA was performed however negative for PE, revealed 3 mm RUL nodule with recommendations to repeat in one year to assess stability. [facility] Social History Patient Tobacco Use Status: Former Tobacco user Tobacco use type: Cigarette Years Smoked: Smoked for 2years intermittently. Review of Systems Const Denies chills, Denies excessive sweating, Denies fever(s), Denies headache(s) and Denies night sweats Eyes Reports dry eyes and Denies irritation ENT Reports Normal hearing present, Reports dry mouth, Denies headache(s), Denies nasal congestion, Denies nasal discharge, Denies post nasal drip and Denies sore throat Card Denies chest pain, Denies chest pain at rest, Denies chest pain with activity, Denies leg edema, Reports dyspnea on exertion, Denies orthopnea and Denies paroxysmal nocturnal dyspnea Resp Denies chest congestion, Reports cough, Denies excessive phlegm production, Denies pain on inspiration, Denies pain with cough, Reports dyspnea on exertion, Denies stridor and Denies wheezing Musc Denies myalgias, Reports arthralgias and Denies joint swelling Neuro Reports Normal hearing present and Denies headache(s) Endo Denies excessive sweating Bhaskar/Lymph Denies lymphadenopathy Aller/Immun Denies seasonal rhinorrhea and Denies wheezing Physical Exam Vital Signs: Last Vital Signs Pulse 68 07/26/24 10:22 BP 124/62 07/26/24 10:22 Pulse Ox 97 07/26/24 10:22 Oxygen Delivery Method Room Air 07/26/24 10:22 BMI result Body Mass Index 27.1 Const General: cooperative, healthy appearing, comfortable, no acute distress, well developed and alert Orientation/consciousness: patient oriented x3 Limitations: no limitations HEENT Head: Yes normal to inspection, Yes normocephalic and Yes atraumatic Ears: hearing grossly normal bilaterally and external ears normal Eyes General: appearance normal, both eyes and all related structures Eyelids: Yes eyelids normal Sclerae: sclerae normal EOM: EOMs intact bilaterally Neck Neck: Yes normal visual inspection and Yes no lymphadenopathy Lymphatic: no lymphadenopathy noted Chest Chest palpation & inspection: normal inspection of the chest Resp Effort & Inspection: normal respiratory effort, able to speak in complete sentences, no audible wheezes, no cough, no stridor, not tachypneic, no tripod positioning and no use of accessory muscles Auscultation: clear to auscultation bilaterally Cardio Jugular venous distension: no JVD Rate: regular rate Rhythm: regular rhythm Skin Other: warm, dry General skin exam: no rashes or lesions noted Neuro General: patient oriented x3 Cranial nerves: Yes Normal hearing present Cognition (Neuro): normal cognition Gait exam (Neuro): Normal gait present Extrem General: Yes normal to inspection, Yes capillary refill normal, Yes no clubbing, cyanosis or edema and Yes no pedal edema Psych Appearance: grossly normal and well kempt Speech and movement: Normal speech and movement present and Clear speech present Affect: normal affect Attitude: cooperative Thought process: Normal thought process present Thought content: Normal thought content present Insight: Good insight present (Psych) Judgement: Good judgement present (Psych) Assessment & Plan Assessment & Plan (1) Asthma: Code(s): J45.909 - Unspecified asthma, uncomplicated Category: Medical (2) Obstructive sleep apnea: Code(s): G47.33 - Obstructive sleep apnea (adult) (pediatric) Category: Medical (3) Sjogren's disease: Code(s): M35.00 - Sjogren syndrome, unspecified Category: Medical Plan Reviewed compliance report and patient has been using >4 hours for 83%, with average AHI 1.7 and minimal leaking. Advised to continue and will send prescription to [facility] for a new machine. At this time, she reports moderate control of respiratory symptoms on current regimen, not interested in increasing Breo. All questions were answered and patient is in agreement of plan. Will follow up in 3-6 months or sooner if needed. Orders: Orders CT chest wo IV con 11 Months R91.1 - Solitary pulmonary nodule Coding Level of Care Code Est Pt Level 4 (29799) Diagnoses Asthma J45.909 Obstructive sleep apnea G47.33 Sjogren's disease M35.00
--- OUTSIDE RECORDS SUMMARY | 2024-07-26 11:33 | XMS_ITS | Continuity of Care Document ---
Author Organization [facility] [address] [place] [address] Phone [phone] Care Team Providers Care Tea And Sp[employer] Supervisor Name Role Phone Yandy Bro M.D. Care Team Information Receiv er [phone] Problems Active Problems Provider Date Hyperlipidemia Alfonso Kirk, PA Onset: 2023 Gastroesophageal reflux disease Rikaliea Reagan, PA Onset: 09/14/2023 Osteoporosis Janinea Reagan, PA Onset: 2023 Irritable bowel syndrome Alfonso Kirk PA Onse t: 09/14/2023 H/O: depression Rikaliea Cathyalivivian, PA Onset: 2023 Anxiety Rikaliea Cathyalifa, PA Onset: 2023 Hyperparathyroidism Riyana Khalifa, PA Onset: Obstructive sleep apnea syndrome Riyana Khalifa, PA Onset: 09/14/2023 Vertigo Rikaliea Cathyalifa, PA Onset: 2023 Tremor Rikaliea Khalifa, PA Onset: 2023 Anemia Riyana Khalifa, PA Onset: 2023 Social History Type Date Description Comments Sex Unknown Marital Status Legal Status: Lives With Spouse Work Status Retired Tobacco Use Start: Unknown Never Smoked Cigarettes ETOH Use Rarely consumes alcohol Allergies and adverse reactions Active Allergies Criticality Reaction Severity Comments Date Demerol Unable to assess criticality 09/14/2023 Levaquin Unable to assess criticality 09/14/2023 Medications Active Medications SIG Qnty Indications Ordering Provider Date [id number] Tablets 1 tab at bedtime as needed Yandy Bro M.D. Breo [id number]/Act Aerosol inhale 1 puff by mouth at the same time every day Dannielle Covington, EM Propranolol HCL ER80mg Caps ER 24HR 1 by mouth every day 90caps Yandy Bro M.D. Duloxetine [id number] Caps DR Part 1 by mouth every day Yandy Bro M.D. Rosuvastatin [id number] Tablets 1 by mouth every day Judson Carrillo M.D Pantoprazole Mxeqlx62sc Tablets DR 1 by mouth every day 90tabs Yandy Bro M.D. Nortriptyline CFN84rd Capsules 1 tab by mouth every day at bedtime Yandy Bro M.D. Isosorbide Mononitrate ER60mg Tablets ER 24HR 1 by mouth every day Judson Carrillo M.D [id number] Tablets 1 by mouth every day Yandy Bro M.D. Qketjuf37fz Tablets Unknown Metformin [id number] Tablets take 1 tablet by mouth twice a day Unknown Vital Signs Date Vital Result Comment 10/31/2023 10:34am BP Systolic 98 mmHg BP Diastolic 58 mmHg Heart Rate 73 /min Height 66 inches 5'6 Weight 179.25 lb BMI (Body Mass Index) 28.9 kg/m2 Results Test Acquired Date Facility Test Result H/L Range Note Laboratory test finding 02/29/2024 [facility] TSH Rfx on Abnormal to Free T4 3.700 uIU/mL 0.450-4. 500 Alkaline Phosphatase 83 IU/L 44-121 Phosphorus 3.6 mg/dL 3.0-4.3 Basic Metabolic Panel (8) 02/29/2024 [facility] Glucose 96 mg/dL 70-99 BUN 16 mg/dL 8-27 Creatinine 1.06 mg/dL High 0.57-1.0 0 eGFR 54 mL/min/1.73 Low >59 BUN/Creatinine Ratio 15 12-28 Sodium 141 mmol/L 134-144 Potassium 4.5 mmol/L 3.5-5.2 Chloride 104 mmol/L 96-106 Carbon Dioxide, Total 22 mmol/L 20-29 Calcium 9.7 mg/dL 8.7-10.3 Laboratory test finding 02/29/2024 [facility] Vitamin D, 25-Hydroxy 45.5 ng/mL 30.0-100 .0 1 PTH, Intact 9 pg/mL Low 15-65 Calcium, 24HR Urine 02/29/2024 [facility] Calcium, Urine 3.0 mg/dL Not Estab. Calcium, Urine 24hr 57 mg/24hr 0-320 Creatinine, 24-Hour Urine 02/29/2024 [facility] Creatinine, Ur 24hr 760 mg/24hr Low 800-1800 N-Telopeptide, Urine 02/29/2024 [facility] N-Telopeptide 61 nmolBCE Not Estab. Creatinine, Urine 40.0 mg/dL Not Estab. N-Telo/Creat. Ratio 17 nMBCE/mMCr 0-89 Interpretive Guide: See Comment: 2 Immunofixatin Serum 02/29/2024 [facility] Immunoglobulin G, Qn, Serum 711 mg/dL [id number] Immunoglobulin A, Qn, Serum 128 mg/dL 64-422 Immunoglobulin M, Qn, Serum 146 mg/dL 26-217 Immunofixation Result, Serum See Comment: 3 1 Vitamin D deficiency has been defined by the [place] of Medicine and an Endocrine Society practice guideline as a level of serum 25-OH vitamin D less than 20 ng/mL (1,2). The Endocrine Society went on to further define vitamin D insufficiency as a level between 21 and 29 ng/mL (2). 1. IOM ([place] of Medicine). 2010. Dietary reference intakes for calcium and D. [place]: The National Academies Press. 2. Matti MF, Tete NC, Jose PEARSON, et al. Evaluation, treatment, and prevention of vitamin D deficiency: an Endocrine Society clinical practice guideline. JCEM. 2010; 96(7):1911-30. 2 The N-telopeptide an d Creatinine are used to calculate the N-telo/Creat. Ratio which is referred to as NTx . Suggested guidelines for the clinical use of NTx are as follows: 1. Menopausal Women not on Hormone Replacement Therapy (HRT): Women with a baseline NTx value >38 are at significant risk for a decrease in bone mineral density (BMD) after 1 year compared to women on HRT. The probability of a decline in BMD increases with NTx value as follows: (1): Baseline NTx Probability of Decrease in BMD 18- 38 1.4 p=0.28 38- 51 2.5 p=0.03 51- 67 3.8 p=0.0006 67-188 17.3 p=0.0001 2. Menopausal Women Receiving Antiresorptive Therapy: The probability that treatment is effective after three months is increased when the measured NTx value is <or=38 nM BCE/mM ARTIFICIAL FLOWER [employer]KER, or NTx has decreased >or=30% from baseline.[1] 3. Patients with Paget's Disease of Bone: The probability that treatment is effective after one month is increased when the measured NTx value is within the reference range, or NTx has decreased >or=30% from baseline.[2] 1. Sun CH, Dilia NH, Carmelo PISANO, et al. Am J Med, 102:29-37,1997. (1):M757, 1996. 2. Bone H, Al J, et al. J Bone Min Res.11(1):M757,1996 3 The immunofixation p attern appears unremarkable. Evidence of monoclonal protein is not apparent. Medical Devices Description No Information Available Encounters Type Date Location Provider Dx Diagnosis Office Visit 10/31/2023 10:30a Main Office ANGEL aBlderas M81.0 Age-related osteoporosis w/o current pathological fracture Assessments Date Code Description Provider 10/31/2023 M81.0 Age-related oste oporosis without current pathological fracture ANGEL Balderas Plan of Treatment Future Appointment(s):* 10/30/2024 10:30 am - ANGEL Balderas at Main Office 10/31/2023 - ANGEL Balderas* M81.0 Age-related osteoporosis without current pathological fracture* New Xrays:* Dexa Bone Density Study Axial Skeleton, Ordered: 10/31/23 Functional Status Description No Information Available Mental Status Description No Information Available Referrals Description No Information Available
== END 2024-07-26 11:03 | disposition home or self-care (01) ==
PROVIDERS: PCP Internal Medicine; Visit Provider Nurse Practitioner Family
DX: J45.909 Unspecified asthma, uncomplicated (principal); G47.33 Obstructive sleep apnea (adult) (pediatric); M35.00 Sjogren syndrome, unspecified
CPT/HCPCS: 99214

== ENCOUNTER → 2024-07-26 10:19 | Outpatient (BNVA) | payer MEDICARE, SELFPAY | PROVIDERS: PCP Internal Medicine; Visit Provider Nurse Practitioner Family | DX: J45.909 Unspecified asthma, uncomplicated (principal); G47.33 Obstructive sleep apnea (adult) (pediatric); R91.1 Solitary pulmonary nodule; M35.00 Sjogren syndrome, unspecified; Z99.89 Dependence on other enabling machines and devices | CPT/HCPCS: 99212 ==

== ENCOUNTER 2024-09-18 11:08 | Outpatient (AMB) | payer MEDICARE, SELFPAY ==
[2024-09-18 11:11] VITALS: BP 110/62; PULSE 64; O2SAT 99; BMI 26.0
--- NOTE | 2024-09-18 11:11 | A.OFFVIS_ITS ---
Vital Signs 09/18/24 11:11 Height 5 ft 6 in Weight 161 lb BMI 26.0 BP 110/62 Blood Pressure Location Rt brachial Position Sitting Pulse 64 Pulse Source Pulse Oximeter Pulse Oximetry (%) 99 Oxygen Delivery Method Room Air Intake Visit Reasons: Asthma Seismic Engineer Required: No Pulvi Mixer Operator: Pulvi Mixer Operator offered & declined Accompanied by: Self / Same As Patient Allergies demerol Allergy (Uncoded 09/18/24 11:16) Vomiting levoquin Allergy (Uncoded 09/18/24 11:16) rash salon pas Allergy (Uncoded 09/18/24 11:16) Blister Medication List - Last Reconciled 09/18/24 by Shahrzad Santana LPN albuterol sulfate 90 mcg/actuation 2 puffs inhalation Q4-6H PRN aspirin 81 mg PO DAILY cholecalciferol (vitamin D3) 25 mcg PO DAILY cyanocobalamin (vitamin B-12) 1,000 mcg PO DAILY duloxetine 60 mg PO DAILY duloxetine 30 mg PO DAILY fluconazole 100 mg PO DAILY fluticasone furoate-vilanterol 100-25 mcg/dose 1 ea inhalation DAILY folic acid 1 mg PO DAILY isosorbide mononitrate ER 60 mg PO DAILY lifitegrast 5% (Xiidra) 1 drp ophthalmic (eye) BID lorazepam 2 mg PO BEDTIME PRN nortriptyline 75 mg PO BEDTIME pantoprazole 40 mg PO BID propranolol ER 60 mg PO DAILY rosuvastatin 20 mg PO DAILY vibegron (Gemtesa) 75 mg PO DAILY HPI HPI Asthma: Details: Stephanie is a pleasant 78 year old female, former minimal smoker, with underlying history of asthma, GERD, FREDIS +, Sjogren's, MER on CPAP. She has a longstanding history with thrush and has been using fluconazole daily prescribed by PCP. She discontinued Breo a few weeks ago due to worsening thrush and has noticed an increase in respiratory symptoms, using albuterol MDI 2 to 3 times a day with good effect. Once her thrush is better controlled she will consider restarting Breo. She has a follow-up with her primary care in the near future to discuss alternative options or increased doses of fluconazole. Since last visit she did receive her new CPAP machine however due to significant life stressors has been able to use consistently. She is motivated to to be compliant as she has significantly benefited from therapy previously. Her DME J&L. She denies any visits to urgent care or hospitalizations related to respiratory symptoms since the last visit. Of note, incidental finding of 3 mm RUL nodule with recommendations to repeat in one year to assess stability. Order placed at last visit. [facility] Social History Patient Tobacco Use Status: Former Tobacco user Tobacco use type: Cigarette Years Smoked: Smoked for 2years intermittently. Review of Systems Const Denies chills, Denies excessive sweating, Denies fever(s), Denies headache(s) and Denies night sweats Eyes Reports dry eyes and Denies irritation ENT Reports Normal hearing present, Reports dry mouth, Denies headache(s), Denies nasal congestion, Denies nasal discharge, Denies post nasal drip and Denies sore throat Card Denies chest pain, Denies chest pain at rest, Denies chest pain with activity, Denies leg edema, Reports dyspnea on exertion, Denies orthopnea and Denies paroxysmal nocturnal dyspnea Resp Denies chest congestion, Reports cough, Denies excessive phlegm production, Denies pain on inspiration, Denies pain with cough, Reports dyspnea on exertion, Denies stridor and Denies wheezing Musc Denies myalgias, Reports arthralgias and Denies joint swelling Neuro Reports Normal hearing present and Denies headache(s) Endo Denies excessive sweating Bhaskar/Lymph Denies lymphadenopathy Aller/Immun Denies seasonal rhinorrhea and Denies wheezing Physical Exam Vital Signs: Last Vital Signs Pulse 64 09/18/24 11:11 BP 110/62 09/18/24 11:11 Pulse Ox 99 09/18/24 11:11 Oxygen Delivery Method Room Air 09/18/24 11:11 BMI result Body Mass Index 26.0 Const General: cooperative, healthy appearing, comfortable, no acute distress, well developed and alert Orientation/consciousness: patient oriented x3 Limitations: no limitations HEENT Head: Yes normal to inspection, Yes normocephalic and Yes atraumatic Ears: hearing grossly normal bilaterally and external ears normal Eyes General: appearance normal, both eyes and all related structures Eyelids: Yes eyelids normal Sclerae: sclerae normal EOM: EOMs intact bilaterally Neck Neck: Yes normal visual inspection and Yes no lymphadenopathy Lymphatic: no lymphadenopathy noted Chest Chest palpation & inspection: normal inspection of the chest Resp Effort & Inspection: normal respiratory effort, able to speak in complete sentences, no audible wheezes, no cough, no stridor, not tachypneic, no tripod positioning and no use of accessory muscles Auscultation: clear to auscultation bilaterally Cardio Jugular venous distension: no JVD Rate: regular rate Rhythm: regular rhythm Skin Other: warm, dry General skin exam: no rashes or lesions noted Neuro General: patient oriented x3 Cranial nerves: Yes Normal hearing present Cognition (Neuro): normal cognition Gait exam (Neuro): Normal gait present Extrem General: Yes normal to inspection, Yes capillary refill normal, Yes no clubbing, cyanosis or edema and Yes no pedal edema Psych Appearance: grossly normal and well kempt Speech and movement: Normal speech and movement present and Clear speech present Affect: normal affect Attitude: cooperative Thought process: Normal thought process present Thought content: Normal thought content present Insight: Good insight present (Psych) Judgement: Good judgement present (Psych) Assessment & Plan Assessment & Plan (1) Asthma: Code(s): J45.909 - Unspecified asthma, uncomplicated Category: Medical (2) Obstructive sleep apnea: Code(s): G47.33 - Obstructive sleep apnea (adult) (pediatric) Category: Medical (3) Sjogren's disease: Code(s): M35.00 - Sjogren syndrome, unspecified Category: Medical Plan Reviewed compliance report and patient is aware she has not been compliant with therapy however is motivated to use. She reports worsening thrush likely related to Breo, at higher risk due to Sjogren's, and has discontinued for the last 2-3 weeks, despite good oral hygiene. She has a follow-up with her PCP to discuss alternative treatment options. Once the rash is better controlled she will attempt to resume Breo. At this time respiratory exam unremarkable and vital signs stable, will hold off on prednisone. All questions were answered and patient is in agreement of plan. Will follow up in 3-6 months or sooner if needed. Coding Level of Care Code Est Pt Level 4 (27481) Diagnoses Asthma J45.909 Obstructive sleep apnea G47.33 Sjogren's disease M35.00
--- OUTSIDE RECORDS SUMMARY | 2024-09-18 13:28 | XMS_ITS | Continuity of Care Document ---
Author Organization [facility] [address] [place] [address] Phone [phone] Care Team Providers Care Wrecker Operator Name Role Phone Yandy Bro M.D. Care Team Information Receiv er [phone] Problems Active Problems Provider Date Hyperlipidemia Alfonso Kirk PA Onset: 2023 Gastroesophageal reflux disease Rikaliea [...] Medications SIG Qnty Indications Ordering Provider Date Qikvgtnhm2sv Tablets 1 tab at bedtime as needed Yandy Bro M.D. Breo [id number]/Act Aerosol inhale 1 puff by mouth at the same time every day Dannielle Covington, EM Propranolol HCL ER80mg Caps ER 24HR 1 by mouth every day 90caps Yandy Bro M.D. Duloxetine IRR37yp Caps DR Part 1 by mouth every day Yandy Bro M.D. Rosuvastatin Vverdmv79in Tablets 1 by mouth every day Judson Carrillo M.D Pantoprazole Facvvv34uc Tablets DR 1 by mouth every day 90tabs Yandy Bro M.D. Nortriptyline CHC09if Capsules 1 tab by mouth every day at bedtime Yandy Bro M.D. Isosorbide Mononitrate ER60mg Tablets ER 24HR 1 by mouth every day Judson Carrillo M.D [id number] Tablets 1 by mouth every day Yandy Bro M.D. Czwxbgd15in Tablets Unknown Metformin [id number] Tablets take 1 tablet by mouth twice a day Unknown Vital Signs Date Vital Result Comment 10/31/2023 10:34am BP Systolic 98 mmHg BP Diastolic 58 mmHg Heart Rate 73 /min Height 66 inches 5'6 Weight 179.25 lb BMI (Body Mass Index) 28.9 kg/m2 Results Test Acquired Date Facility Test Result H/L Range Note TSH Rfx on Abnormal to Free T4 02/29/2024 [facility] TSH Rfx on Abnormal to Free T4 3.700 uIU/mL 0.450-4. 500 Alkaline Phosphatase 02/29/2024 [facility] Alkaline Phosphatase 83 IU/L 44-121 Phosphorus 02/29/2024 [facility] Phosphorus 3.6 mg/dL 3.0-4.3 Basic Metabolic Panel (8) 02/29/2024 [facility] Glucose 96 mg/dL 70-99 BUN 16 mg/dL 8-27 Creatinine 1.06 mg/dL High 0.57-1.0 0 eGFR 54 mL/min/1.73 Low >59 BUN/Creatinine Ratio 15 12-28 Sodium 141 mmol/L 134-144 Potassium 4.5 mmol/L 3.5-5.2 Chloride 104 mmol/L 96-106 Carbon Dioxide, Total 22 mmol/L 20-29 Calcium 9.7 mg/dL 8.7-10.3 Vitamin D, 25-Hydroxy 02/29/2024 [facility] Vitamin D, 25-Hydroxy 45.5 ng/mL 30.0-100 .0 1 PTH, Intact 02/29/2024 [facility] PTH, Intact 9 pg/mL Low 15-65 Calcium, [...] D deficiency has been defined by the [place] of [employer] and an Endocrine Society practice guideline as a level of serum 25-OH vitamin D less than 20 ng/mL (1,2). The Endocrine Society went on to further define vitamin D insufficiency as a level between 21 and 29 ng/mL (2). 1. IOM ([place] [employer]). 2010. Dietary reference intakes for [...] measured NTx value is <or=38 nM BCE/mM INSIDE SALES ENGINEER, or NTx has decreased >or=30% from baseline.[1] 3. Patients with Paget's Disease of Bone: The probability that treatment is effective after one month is increased when the measured NTx value is within the reference range, or NTx has decreased >or=30% from baseline.[2] 1. Sun CH, Dobbs NH, Carmelo GS, et al. Am J Med, 102:29-37,1997. (1):M757, 1996. 2. Bone H, Al J, et al. J Bone Min Res.11(1):M757,1996 3 The immunofixation p attern appears unremarkable. Evidence of monoclonal protein is not apparent. Medical Devices Description No Information Available Encounters Type Date Location Provider Dx Diagnosis Office Visit 10/31/2023 10:30a Main Office ANGEL Balderas M81.0 Age-related osteoporosis w/o current pathological fracture [...]
--- OUTSIDE RECORDS SUMMARY | 2024-09-18 13:28 | XMS_ITS | Clinical Summary ---
Author Organization [facility] ity Address [address] [place] [address] Care Team Providers Care Clinical Associate Name Role Phone Yandy Bro MD Primary Care Provider [phone] Medications isosorbide mononitrate (IMDUR) 60 mg 24 hr tablet Take 1 tablet (60 mg total) by mouth 1 (one) time each day. 90 tablet 1 09/06/19 25 Active rosuvastatin (CRESTOR) 20 mg tablet TAKE 1 TABLET DAILY 90 tablet 09/07/19 25 Active rosuvastatin (CRESTOR) 20 mg tablet TAKE 1 TABLET DAILY 90 tablet 06/11/19 25 025 Discontinued isosorbide mononitrate (IMDUR) 60 mg 24 hr tablet Take 1 tablet (60 mg total) by mouth 1 (one) time each day. 025 Discontinued(Re order) Encounters Date Type Department Care Team Description 09/04/2024 Telephone [facility] [address] [facility] [address] [place] [address] Judson Carrillo MD Med Refill from Last 3 Months Medical History Medical History Date Comments Family history of cardiovascular disease DX:Family history of cardiovascular disease Hyperlipidemia DX:Hyperlipidemi a Essential hypertension DX:Essent ial hypertension Family History Medical History Relation Name Comments Hypertension Father Coronary artery disease Mother Heart failure Mother Hypertension Mother Relation Name Status Comments Father Mother Social History Tobacco Use Types Packs/Day Years Used Date Smoking Tobacco: Never Smokeless Tobacco: Never Alcohol Use Standard Drinks/Week Comments Not Currently 0 (1 standard drink = 0.6 oz pur e alcohol) Comments Unknown Sex and Gender Information Value Date Recorded Sex Assigned at Not on file Legal Sex Female 1:59 AM EST Gender Identity Not on file Sexual Orientation Not on file Obstetrics History Last Filed Vital Signs Vital Sign Reading Time Taken Comments Blood Pressure 120/58 12/21/2022 3:40 PM EDT Sit ting L Arm Pulse 80 12/21/2022 3:40 PM EDT Temperature - - Respiratory Rate - - Oxygen Saturation - - Inhaled Oxygen Concentration - - Weight 84.4 kg (186 lb) 12/21/2022 3:40 PM EDT Height 167.6 cm (5' 6 ) 12/21/2022 3:40 PM EDT Body Mass Index 30.02 12/21/2022 3:40 PM EDT Plan of Treatment Upcoming Encounters Date Type Department Care Team (Late st Contact Info) Description 11/20/2024 9:50 AM EDT Office Visit [facility] [address] [id number] Judson Carrillo MD [address] [address] Health Maintenance Due Date Last Done Comments DTaP,Tdap,and Td Vaccines (1 - Tdap) 10/13/1966 Pneumococcal Vaccine: 50+ Ye ars (1 of 2 - PCV) 10/13/1966 Zoster Vaccines (1 of 2) 10/13/1997 Cholesterol Screening (Lipid Panel) 05/07/2022 Depression Screening 05/07/2022 Falls Risk Assessment 05/07/2022 Hepatitis C Screening 05/07/2022 Medicare Annual Wellness Visit 05/07/2022 Osteoporosis Screening (Bone Density Screening) 05/07/2022 Social Influencers of Health Screening 05/07/2022 RSV Immunization Adult Patie nts (1 - 1-dose 75+ series) 10/13/2022 Hypertension/CHF/CAD Annual BMP Blood Test 06/27/2023 COVID-19 Vaccine ( - 2023-2 5 season) 2024 Influenza Vaccine (Season Ended) 2025 HIB Vaccines Aged Out No longer eligi ble based on patient's age to complete this topic HPV Vaccines Aged Out No longer eligi ble based on patient's age to complete this topic Hepatitis A Vaccines Aged Out No long er eligible based on patient's age to complete this topic Hepatitis B Vaccines Aged Out No long er eligible based on patient's age to complete this topic IPV Vaccines Aged Out No longer eligi ble based on patient's age to complete this topic MMR Vaccines Aged Out No longer eligi ble based on patient's age to complete this topic Meningococcal ACWY Vaccine Aged Out N o longer eligible based on patient's age to complete this topic Meningococcal B Vaccine Aged Out No l onger eligible based on patient's age to complete this topic RSV Immunization Patients Un abigail 20 months Aged Out No longer eligible b ased on patient's age to complete this topic Varicella Vaccines Aged Out No longer eligible based on patient's age to complete this topic Insurance MEDICARE Care Teams Clinical Associate Relationship Specialty Start Date End Date Yandy Bro MD [address] Riggins [address] [address] PCP - General Internal Medicine 08/08/24
== END 2024-09-18 11:46 | disposition home or self-care (01) ==
LOC: HO.HPSW 11:09
PROVIDERS: PCP Internal Medicine; Visit Provider Nurse Practitioner Family
DX: J45.909 Unspecified asthma, uncomplicated (principal); G47.33 Obstructive sleep apnea (adult) (pediatric); M35.00 Sjogren syndrome, unspecified
CPT/HCPCS: 99214

== ENCOUNTER → 2024-09-18 11:08 | Outpatient (BNVA) | payer MEDICARE, SELFPAY | PROVIDERS: PCP Internal Medicine; Visit Provider Nurse Practitioner Family | DX: J45.909 Unspecified asthma, uncomplicated (principal); G47.33 Obstructive sleep apnea (adult) (pediatric); M35.00 Sjogren syndrome, unspecified; Z87.891 Personal history of nicotine dependence; Z99.89 Dependence on other enabling machines and devices | CPT/HCPCS: 99212 ==

== ENCOUNTER 2025-01-15 13:51 | Outpatient (AMB) | payer MEDICARE, SELFPAY ==
[2025-01-15 14:07] VITALS: BP 108/54; PULSE 67; O2SAT 98; BMI 25.4
--- NOTE | 2025-01-15 14:07 | MHC.OFFVIS ---
Vital Signs 01/15/25 14:07 Height 5 ft 6 in Weight 157 lb 2 oz BMI 25.4 BP 108/54 L Blood Pressure Location Rt brachial Position Sitting Pulse 67 Pulse Source Pulse Oximeter Pulse Oximetry (%) 98 Oxygen Delivery Method Room Air Intake Visit Reasons: Asthma Allergies demerol Allergy (Uncoded 01/15/25 14:10) Vomiting levoquin Allergy (Uncoded 01/15/25 14:10) rash salon pas Allergy (Uncoded 01/15/25 14:10) Blister HPI HPI Asthma: Details: Stephanie is a pleasant 79 year old female, former minimal smoker, with underlying history of asthma, GERD, FREDIS +, Sjogren's, MER on CPAP. She has a longstanding history with thrush and has been using fluconazole daily prescribed by PCP. She has been using Breo inconsistently due to concerns with thrush, rarely using albuerol MDI. She continues with dyspnea on exertion and has upcoming evaluation with cardiology, Dr. Carrillo. She has been using CPAP therapy and is motivated to be compliant as she has significantly benefited from therapy previously. DME is J&L. She denies any visits to urgent care or hospitalizations related to respiratory symptoms since the last visit. Previously underwent CT chest at [facility] with incidental finding of 3 mm RUL nodule with recommendations to repeat in one year to assess stability, will have repeat chest CT 05/2025. [facility] Social History Patient Tobacco Use Status: Former Tobacco user Tobacco use type: Cigarette Years Smoked: Smoked for 2years intermittently. Review of Systems Const Denies chills, Denies excessive sweating, Denies fever(s), Denies headache(s) and Denies night sweats Eyes Reports dry eyes and Denies irritation ENT Reports Normal hearing present, Reports dry mouth, Denies headache(s), Denies nasal congestion, Denies nasal discharge, Denies post nasal drip and Denies sore throat Card Denies chest pain, Denies chest pain at rest, Denies chest pain with activity, Denies leg edema, Reports dyspnea on exertion, Denies orthopnea and Denies paroxysmal nocturnal dyspnea Resp Denies chest congestion, Reports cough, Denies excessive phlegm production, Denies pain on inspiration, Denies pain with cough, Reports dyspnea on exertion, Denies stridor and Denies wheezing Musc Denies myalgias, Reports arthralgias and Denies joint swelling Neuro Reports Normal hearing present and Denies headache(s) Endo Denies excessive sweating Bhaskar/Lymph Denies lymphadenopathy Aller/Immun Denies seasonal rhinorrhea and Denies wheezing Physical Exam Vital Signs: Last Vital Signs Pulse 67 01/15/25 14:07 BP 108/54 L 01/15/25 14:07 Pulse Ox 98 01/15/25 14:07 Oxygen Delivery Method Room Air 01/15/25 14:07 BMI result Body Mass Index 25.4 Const General: cooperative, healthy appearing, comfortable, no acute distress, well developed and alert Orientation/consciousness: patient oriented x3 Limitations: no limitations HEENT Head: Yes normal to inspection, Yes normocephalic and Yes atraumatic Ears: hearing grossly normal bilaterally and external ears normal Eyes General: appearance normal, both eyes and all related structures Eyelids: Yes eyelids normal Sclerae: sclerae normal EOM: EOMs intact bilaterally Neck Neck: Yes normal visual inspection and Yes no lymphadenopathy Lymphatic: no lymphadenopathy noted Chest Chest palpation & inspection: normal inspection of the chest Resp Effort & Inspection: normal respiratory effort, able to speak in complete sentences, no audible wheezes, no cough, no stridor, not tachypneic, no tripod positioning and no use of accessory muscles Auscultation: clear to auscultation bilaterally Cardio Jugular venous distension: no JVD Rate: regular rate Rhythm: regular rhythm Skin Other: warm, dry General skin exam: no rashes or lesions noted Neuro General: patient oriented x3 Cranial nerves: Yes Normal hearing present Cognition (Neuro): normal cognition Gait exam (Neuro): Normal gait present Extrem General: Yes normal to inspection, Yes capillary refill normal, Yes no clubbing, cyanosis or edema and Yes no pedal edema Psych Appearance: grossly normal and well kempt Speech and movement: Normal speech and movement present and Clear speech present Affect: normal affect Attitude: cooperative Thought process: Normal thought process present Thought content: Normal thought content present Insight: Good insight present (Psych) Judgement: Good judgement present (Psych) Assessment & Plan Assessment & Plan (1) Asthma: Code(s): J45.909 - Unspecified asthma, uncomplicated Category: Medical (2) Obstructive sleep apnea: Code(s): G47.33 - Obstructive sleep apnea (adult) (pediatric) Category: Medical (3) Sjogren's disease: Code(s): M35.00 - Sjogren syndrome, unspecified Category: Medical Plan Reviewed compliance report and patient is aware she has not been compliant with therapy however working towards consistent use. She has been using >4 hours 67% of the time, average AHI 2.2 with minimal leaking. Discussed consistent use of Breo however she expresses concerns of thrush, encouraged increased use of Albuterol MDI. Prior chest CT revealed 3 mm RUL nodule and will have repeat chest CT ordered in one year 05/2025. All questions were answered and patient is in agreement of plan. Will follow up in 3-6 months or sooner if needed. Coding Level of Care Code Est Pt Level 4 (20863) Diagnoses Asthma J45.909 Obstructive sleep apnea G47.33 Sjogren's disease M35.00
--- OUTSIDE RECORDS SUMMARY | 2025-01-15 14:49 | XMS_ITS | Continuity of Care Document ---
Author Organization [facility] Address [address] [place] [address] Phone [phone] Care Team Providers Care Polisher Brass Name Role Phone Yandy Bro M.D. Care Team Information Receiv er [phone] Problems Active Problems Provider Date Hyperlipidemia Alfonso Kirk PA Onset: 2023 Gastroesophageal reflux disease Rikaliea Reagan, PA Onset: 09/14/2023 Osteoporosis Janinea Reagan, PA Onset: 2023 Irritable bowel syndrome Alfonso Kirk PA Onse t: 09/14/2023 H/O: depression Rikaliea Cathyalivviian, PA Onset: 2023 Anxiety Rikaliea Cathyalifa, PA Onset: 2023 Hyperparathyroidism Riyana Khalifa, PA Onset: Obstructive sleep apnea syndrome Riyana Khalifa, PA Onset: 09/14/2023 Vertigo Rikaliea Cathyalivivian, PA Onset: 2023 Tremor Rikaliea Khalifa, PA Onset: 2023 Anemia Riyana Khalifa, PA Onset: 2023 Social History Type Date Description Comments Sex Female Sex Unknown Marital Status Legal Status: Lives With Spouse Work Status Retired Tobacco Use Start: Unknown Never Smoked Cigarettes ETOH Use Rarely consumes alcohol Allergies and adverse reactions Active Allergies Criticality Reaction Severity Comments Date Demerol Unable to assess criticality 09/14/2023 Levaquin Unable to assess criticality 09/14/2023 Medications Active Medications SIG Qnty Indications Ordering Provider Date Iplvfkmqz8jl Tablets 1 tab at bedtime as needed Yandy Bro M.D. Breo [id number]/Act Aerosol inhale 1 puff by mouth at the same time every day Dannielle Covington, EM Propranolol HCL ER80mg Caps ER 24HR 1 by mouth every day 90caps Yandy Bro M.D. Duloxetine OQG45cp Caps DR Part 1 by mouth every day Yandy Bro M.D. Rosuvastatin Gffeqpy16jd Tablets 1 by mouth every day Judson Carrillo M.D Pantoprazole Jbuaxk77bl Tablets DR 1 by mouth every day 90tabs Yandy Bro M.D. Nortriptyline ZLO26zn Capsules 1 tab by mouth every day at bedtime Yandy Bor M.D. Isosorbide Mononitrate ER60mg Tablets ER 24HR 1 by mouth every day Judson Carrillo M.D Zxayecipasy663gs Tablets 1 by mouth every day Yandy Bro M.D. Rqeiiwv18ao Tablets Unknown Metformin WTV529vl Tablets take 1 tablet by mouth twice [...] D deficiency has been defined by the [place] of [employer] and an Endocrine Society practice guideline as a level of serum 25-OH vitamin D less than 20 ng/mL (1,2). The Endocrine Society went on to further define vitamin D insufficiency as a level between 21 and 29 ng/mL (2). 1. IOM ([place] of [employer]). 2010. Dietary reference intakes for [...] measured NTx value is <or=38 nM BCE/mM INSPECTOR AND SORTER, or NTx has decreased >or=30% from baseline.[1] 3. Patients with Paget's Disease of Bone: The probability that treatment is effective after one month is increased when the measured NTx value is within the reference range, or NTx has decreased >or=30% from baseline.[2] 1. Sun CH, Dilia NH, Carmelo GS, et al. Am J [...] pathological fracture ANGEL Balderas Plan of Treatment 10/31/2023 - ANGEL Balderas* M81.0 Age-related osteoporosis without current pathological fracture* New Xrays:* Dexa Bone Density Study Axial Skeleton, Ordered: 10/31/23 Functional Status Description No Information Available Mental Status Description No Information Available Referrals Description No Information Available
== END 2025-01-15 14:38 | disposition home or self-care (01) ==
LOC: HO.HPSW 13:52
PROVIDERS: PCP Internal Medicine; Visit Provider Nurse Practitioner Family
DX: J45.909 Unspecified asthma, uncomplicated (principal); G47.33 Obstructive sleep apnea (adult) (pediatric); M35.00 Sjogren syndrome, unspecified
CPT/HCPCS: 99214

== ENCOUNTER → 2025-01-15 13:51 | Outpatient (BNVA) | payer MEDICARE, SELFPAY | PROVIDERS: PCP Internal Medicine; Visit Provider Nurse Practitioner Family | DX: J45.909 Unspecified asthma, uncomplicated (principal); G47.33 Obstructive sleep apnea (adult) (pediatric); M35.00 Sjogren syndrome, unspecified; Z99.89 Dependence on other enabling machines and devices | CPT/HCPCS: 99212 ==

== ENCOUNTER 2025-04-09 09:44 | Outpatient (AMB) | payer MEDICARE, SELFPAY ==
--- NOTE | 2025-04-09 09:46 | MHC.OFFVIS ---
Vital Signs 04/09/25 09:47 Height 5 ft 6 in Weight 154 lb 4 oz BMI 24.9 BP 106/50 L Blood Pressure Location Rt brachial Position Sitting Pulse 76 Pulse Source Pulse Oximeter Pulse Oximetry (%) 97 Oxygen Delivery Method Room Air Intake Visit Reasons: Asthma Allergies demerol Allergy (Uncoded 04/09/25 09:51) Vomiting levoquin Allergy (Uncoded 04/09/25 09:51) rash salon pas Allergy (Uncoded 04/09/25 09:51) Blister HPI HPI Asthma: Details: Stephanie is a pleasant 79 year old female, former minimal smoker, with underlying history of asthma, GERD, FREDIS +, Sjogren's, MER on CPAP. The patient experienced severe oral candidiasis with symptoms including split corners of the mouth and swollen lips, which improved with the use of fluconazole as advised by PCP. The condition has been recurrent, particularly associated with the use of inhaled corticosteroids, resulting in inconsistent use of Breo. She continues to report dyspnea on exertion using albuterol MDI 4-5 times per week with good effect. The patient uses a CPAP machine with good compliance, achieving an events per hour rate of 2, which is within the desired range. She experiences occasional discomfort with the full face mask, which may contribute to oral dryness and candidiasis. DME is [employer]. Today she presents to review compliance report. Previously underwent [facility] chest at [facility] with incidental finding of 3 mm RUL nodule with recommendations to repeat in one year to assess stability, will have repeat chest CT 05/2025. [facility] Social History (Reviewed 04/09/25 @ 09:51 by Ruby Butcher [facility]) Patient Tobacco Use Status: Former Tobacco user Tobacco use type: Cigarette Years Smoked: Smoked for 2years intermittently. Review of Systems Const Denies chills, Denies excessive sweating, Denies fever(s), Denies headache(s) and Denies night sweats Eyes Reports dry eyes and Denies irritation ENT Reports Normal hearing present, Reports dry mouth, Denies headache(s), Denies nasal congestion, Denies nasal discharge, Denies post nasal drip and Denies sore throat Card Denies chest pain, Denies chest pain at rest, Denies chest pain with activity, Denies leg edema, Reports dyspnea on exertion, Denies orthopnea and Denies paroxysmal nocturnal dyspnea Resp Denies chest congestion, Reports cough, Denies excessive phlegm production, Denies pain on inspiration, Denies pain with cough, Reports dyspnea on exertion, Denies stridor and Denies wheezing Musc Denies myalgias, Reports arthralgias and Denies joint swelling Neuro Reports Normal hearing present and Denies headache(s) Endo Denies excessive sweating Bhaskar/Lymph Denies lymphadenopathy Aller/Immun Denies seasonal rhinorrhea and Denies wheezing Physical Exam Vital Signs: Last Vital Signs Pulse 76 04/09/25 09:47 BP 106/50 L 04/09/25 09:47 Pulse Ox 97 04/09/25 09:47 Oxygen Delivery Method Room Air 04/09/25 09:47 BMI result Body Mass Index 24.9 Const General: cooperative, healthy appearing, comfortable, no acute distress, well developed and alert Orientation/consciousness: patient oriented x3 Limitations: no limitations HEENT Head: Yes normal to inspection, Yes normocephalic and Yes atraumatic Ears: hearing grossly normal bilaterally and external ears normal Eyes General: appearance normal, both eyes and all related structures Eyelids: Yes eyelids normal Sclerae: sclerae normal EOM: EOMs intact bilaterally Neck Neck: Yes normal visual inspection and Yes no lymphadenopathy Lymphatic: no lymphadenopathy noted Chest Chest palpation & inspection: normal inspection of the chest Resp Effort & Inspection: normal respiratory effort, able to speak in complete sentences, no audible wheezes, no cough, no stridor, not tachypneic, no tripod positioning and no use of accessory muscles Auscultation: clear to auscultation bilaterally Cardio Jugular venous distension: no JVD Rate: regular rate Rhythm: regular rhythm Skin Other: warm, dry General skin exam: no rashes or lesions noted Neuro General: patient oriented x3 Cranial nerves: Yes Normal hearing present Cognition (Neuro): normal cognition Gait exam (Neuro): Normal gait present Extrem General: Yes normal to inspection, Yes capillary refill normal, Yes no clubbing, cyanosis or edema and Yes no pedal edema Psych Appearance: grossly normal and well kempt Speech and movement: Normal speech and movement present and Clear speech present Affect: normal affect Attitude: cooperative Thought process: Normal thought process present Thought content: Normal thought content present Insight: Good insight present (Psych) Judgement: Good judgement present (Psych) Assessment & Plan Assessment & Plan (1) Asthma: Code(s): J45.909 - Unspecified asthma, uncomplicated Category: Medical (2) Obstructive sleep apnea: Code(s): G47.33 - Obstructive sleep apnea (adult) (pediatric) Category: Medical (3) Sjogren's disease: Code(s): M35.00 - Sjogren syndrome, unspecified Category: Medical Plan Reviewed compliance report and patient is using >4 hours 78% of the time, average AHI 2. with minimal leaking. The patient is advised to consider trying a nasal mask with a chin strap to potentially reduce oral dryness and improve comfort while using CPAP. The plan includes switching to a non-powder inhaler to reduce the recurrence of oral candidiasis, with a trial of Advair to assess tolerance and effectiveness. The dyspnea will be managed with the new inhaler regimen, and the patient is advised to monitor symptoms and report any worsening. Prior chest CT revealed 3 mm RUL nodule and will have repeat chest CT ordered in one year 05/2025. All questions were answered and patient is in agreement of plan. Will follow up in 3 months or sooner if needed. Patient was informed and verbally consented to the use of an ambient scribe for clinic note documentation during this visit. Medications: New fluticasone propion-salmeterol 115-21 mcg/actuation (Advair HFA) 2 puffs inhalation Q12H 12 grams 3RF Discontinued fluticasone furoate-vilanterol 100-25 mcg/dose (Breo Ellipta) Discontinued Reason: Patient Completed Course 1 inh PO DAILY 180 grams 2RF Coding Level of Care Code Est Pt Level 4 (70698) Diagnoses Asthma J45.909 Obstructive sleep apnea G47.33 Sjogren's disease M35.00
[2025-04-09 09:47] VITALS: BP 106/50; PULSE 76; O2SAT 97; BMI 24.9
--- OUTSIDE RECORDS SUMMARY | 2025-04-09 11:04 | XMS_ITS | Clinical Summary ---
Author Organization [address] [place] [address] Address [address] [place] [address] Phone Care Team Providers Care Clinical Assoc Name Role Phone Yandy Bro MD Primary Care Provider [phone] Allergies Active Allergy Reactions Criticality Noted Date Comments Cyclosporine 11/04/2020 Levofloxacin Hives 06/18/2013 Meperidine Hives 06/18/2013 Salonpas-E 11/04/2020 Medications propranolol LA (INDERAL LA) 60 mg 24 hr capsule Take 1 capsule (60 mg total) by mouth 1 (one) time each day. 11/19/2024 Active DULoxetine (CYMBALTA) [address] capsule 10/05/2024 Active DULoxetine (CYMBALTA) [address] capsule Take 1 capsule (60 mg total) by mouth 1 (one) time each day. Active cyanocobalamin (VITAMIN B-12) 1,000 mcg tablet Take 1 tablet (1,000 mcg total) by mouth 1 (one) time each day. Active aspirin 81 mg EC tablet Take 1 tablet (81 mg total) by mouth 1 (one) time. Active folic acid (FOLVITE) 1 mg tablet Take 1 tablet (1 mg total) by mouth. Active LORazepam (ATIVAN) 2 mg tablet TAKE 1/4 TABLET EVERY MORNING, AND TAKE 1 TABLET AT BEDTIME Active nortriptyline (PAMELOR) 75 mg capsule Take 1 capsule (75 mg total) by mouth. Active fluticasone furoate-vilanter oL (Breo Ellipta) 100-25 mcg/dose inhaler Inhale by mouth 1 (one) time each day. Active albuterol HFA (PROAIR HFA ; PROVENTIL HFA ; VENTOLIN HFA) 90 mcg/actuation inhaler Inhale 2 puffs by mouth every 6 (six) hours if needed for wheezing. Active pantoprazole (PROTONIX) 40 mg EC tablet Take 20 mg by mouth 2 (two) times a day. Do not crush, chew, or split. Active nitroglycerin (NITROSTAT) 0.[address] 1 tablet (0.4 mg total) under the tongue every 5 (five) minutes if needed for chest pain. 25 tablet 2 01/14/2025 Active rosuvastatin (CRESTOR) 20 mg tablet TAKE 1 TABLET DAILY 90 tablet 1 01/30/2025 Active fluconazole (DIFLUCAN) 100 mg tablet Take 1 tablet (100 mg total) by mouth 1 (one) time each day. Active cholecalciferol (Vitamin D3) 50 mcg (2,000 unit) tablet Take 1 tablet (2,000 Units total) by mouth 1 (one) time each day. Active isosorbide mononitrate (IMDUR) 60 mg 24 hr tablet TAKE 1 TABLET DAILY 90 tablet 3 02/20/2025 Active Active Problems Problem Noted Date Diagnosed Date Syncope 11/26/2024 Other chest pain 11/20/2024 [place] syncope 11/20/2024 Encounters Date Type Department Care Team Description 03/18/2025 11:35 AM EDT Ancillary Procedure [facility]iology [facility] [address] [facility] [address] [place] [address] 03/09/2025 8:25 PM EDT Ancillary Procedure [facility] [address] [facility] [address] [place] [address] 03/05/2025 Telephone [facility] [address] [place] [address] Judson Carrillo MD 02/07/2025 Telephone [facility] [address] [place] [address] Judson Carrillo MD 02/06/2025 2:15 AM EDT Ancillary Procedure [facility] [address] [place] [address] 01/13/2025 10:20 AM EDT Ancillary Procedure [facility] [address] [facility] [address] [place] [address] 01/10/2025 9:30 AM EDT - 01/10/2025 10:00 AM EDT Surgery [facility] [address] [place] [address] Musa Stockton MD Loop recorder insertion [[id number] (CPT )] 01/10/2025 8:31 AM EDT - 01/10/2025 12:32 PM EDT Hospital Encounter [facility] [address] [place] [address] Musa Stockton MD Syncope Discharge Disposition: Home or Self Care from Last 3 Months Medical History Medical [...] Information Value Date Recorded Sex Assigned at Female 01/03/2025 8:43 AM EDT Legal Sex Female 1:59 AM EST Gender Identity Not on file Sexual Orientation Not on file Obstetrics History Last Filed Vital Signs Vital Sign Reading Time Taken Comments Blood Pressure 118/50 11/20/2024 9:44 AM EDT Pulse 70 11/20/2024 9:44 AM EDT Temperature - - Respiratory Rate - - Oxygen Saturation 95% 11/20/2024 9:44 AM EDT Inhaled Oxygen Concentration - - Weight 70.3 kg (155 lb) 01/10/2025 8:39 AM EDT Height 167.6 cm (5' 6 ) 01/10/2025 8:39 AM EDT Body Mass Index 25.02 01/10/2025 8:39 AM EDT Plan of Treatment Upcoming Encounters Date Type Department Care Team (Late st Contact Info) Description 06/02/2025 9:10 AM EST Office Visit [facility] [address] [facility] [address] [place] [address] Marija Bradford NP [address] [place] [address] [place] [address] Health Maintenance Due Date Last Done Comments Pneumococcal Vaccine: 50+ Years (1 of 2 - PCV) 10/13/1966 Zoster Vaccines (1 of 2) 10/13/1997 Cholesterol Screening (Lipid Panel) 05/07/2022 Falls Risk Assessment 05/07/2022 Hepatitis C Screening 05/07/2022 Osteoporosis Screening (Bone Density Screening) 05/07/2022 Social Influencers of Health Screening 05/07/2022 Hypertension/CHF/CAD Annual BMP Blood Test 06/27/2023 Medicare Annual Wellness Visit 02/25/2024 02/24/2023 Depression Screening 05/29/2024 COVID-19 Vaccine ( season) 2025 02/12/2024, 02/20/2023, 09/26/2022, Additional history exists DTaP,Tdap,and Td Vaccines (2 - Td or Tdap) 04/19/2034 04/19/2024 RSV Immunization Adult Patients Completed 05/08/2023 Influenza Vaccine Completed 03/07/2025, , 02/20/2023, Additional history exists HIB Vaccines Aged Out No longer eligi [...] to complete this topic RSV Immunization Patients Under 20 months Aged Out No longer eligible based on patient's age to complete this topic Varicella Vaccines Aged Out No longer eligible based on patient's age to complete this topic Medical Devices Implanted Type Area Paper Supervisor Device Identifier Shelf Expiration Date Model / Serial / Lot Monitor Cardiac Insert Lux Dx Ii+ - [id number] - [id number] Implanted:Qty: 1 on 01/10/2025 by Musa Stockton MD at [facility] Cardiac Loop Recorder N/A: Chest [employer] MGMT [id number] 03/20/2026 [id number] / [id number] / Procedures Procedure Name Priority Date/Time Associated Diagnosis Comments CARDIAC DEVICE CHECK- REMOTE- MURJ Routine 03/18/2025 11:32 AM EDT CARDIAC DEVICE CHECK- REMOTE- MURJ Routine 03/09/2025 8:23 PM EDT CARDIAC DEVICE CHECK- REMOTE- MURJ Routine 02/06/2025 2:14 AM EDT CARDIAC DEVICE CHECK- REMOTE- MURJ Routine 01/13/2025 10:19 AM EDT LOOP RECORDER INSERTION Routine 01/10/2025 11:28 AM EDT Syncope from Last 3 Months Results * Cardiac device check - Remote- MURJ (03/18/2025 11:32 AM EDT) Only the most recent of4 resultswithin the time period is included. Date Time Interrogation Session [id number] CV DEVICE CHECK Type Interrogation Session Remote Device Initiated CV DEVICE CHECK Implantable Pulse Generator Paper Supervisor BSX CV DEVICE CHECK Implantable Pulse Generator Type ILR CV DEVICE CHECK Implantable Pulse Generator Model M312 CV DEVICE CHECK Implantable Pulse Generator Serial Number [id number] CV DEVICE CHECK Implantable Pulse Generator Implant Date 20250110 CV DEVICE CHECK Battery Status Beginning of Service CV DEVICE CHECK Atrial Tachy Statistic AT/AF [place] Percent 0.00 CV DEVICE CHECK Date of Service 2025-04-13 CV DEVICE CHECK Anatomical Region Laterality Modality Device Interroga tion 03/16/2025 12:4 2 AM EDT Impressions 03/18/2025 11:30 AM EDT Bradycardia * Stored EGMs are consistent with or suggestive of bradycardia * Underlying rhythm during bradycardia: _Sinus__ * Total episodes: 2 Narrative Procedure Note Tammy Salmon, MANNEQUIN MOLD MAKER - 03/18/2025 IMPRESSION: Bradycardia * Stored EGMs are consistent with or suggestive of bradycardia * Underlying rhythm during bradycardia: _Sinus__ * Total episodes: 2 us Tammy Salmon NP CV IMPLANTABLE CARDIAC DEVIC E PROCEDURES Final Result * LOOP RECORDER INSERTION (01/10/2025 11:28 AM EDT) Anatomical Region Laterality Modality X-Ray Angiograph y Narrative 01/15/2025 10:19 AM EDT Successful implantation of a implantable cardiac event recorder Study Details 79 y.o. old female with atypical chest pain, dizziness, asthma and COPD with unexplained syncope Procedure Details Patient is brought to the EP lab holding area. She was consented prior to procedure. She was prepped and draped in usual fashion. Incision made a left fourth intercostal space left of the sternal border. I gave additional amount of lidocaine. I then used a [employer] apparatus and made a small incision and deployed the device under dermal skin. I closed incision with a 3-0 Vicryl. Dermabond glue was placed over the incision. Device is a [employer] Lux to implantable loop recorder. Please see report for details of mild membrane serial number of the device. Please see report for full details the sensed R waves. us Mukund Weathers MD CV ELECTROPHYSIOLOGY PROCEDURE S Final Result from Last 3 Months Insurance MEDICARE [facility] Care Teams Clinical Assoc Relationship Specialty Start Date End Date Yandy Bro MD [address] [place] [address] PCP - General Internal Medicine 08/08/24
--- OUTSIDE RECORDS SUMMARY | 2025-04-09 11:04 | XMS_ITS ---
Continuity of Care Document (CCD) Created on: April 09, 2025 Jamie Pool Stephanie A External Reference #: [id number] : [id number] Sex: Female Author Organization [facility] Address [address] [facility] [address] [facility] [address] [place] [address] Phone [phone] Care Team Providers Care Ug Designer Name Role Phone Yandy Bro M.D. Care Team Information Receiv er [phone] Problems Active Problems Provider Date Hyperlipidemia Alfonso Kirk PA Onset: 2023 Gastroesophageal reflux disease Rikaliea Reagan, PA Onset: 09/14/2023 Osteoporosis Janinea Reagan, PA Onset: 2023 Irritable bowel syndrome Alfonso Kirk PA Onse t: 09/14/2023 H/O: depression Rikaliea Cathyalivivian, PA Onset: 2023 Anxiety Rikaliea Cathyalifa, PA Onset: 2023 Hyperparathyroidism Riyana Khalifa, PA Onset: Obstructive sleep apnea syndrome Riyana Khalifa, PA Onset: 09/14/2023 Vertigo Rikaliea Catyhalivivian, PA Onset: 2023 Tremor Rikaliea Cathyalifa, PA Onset: 2023 Anemia Riyana Khalifa, PA [...] Medications SIG Qnty Indications Ordering Provider Date [id number] Tablets 1 tab at bedtime as needed Yandy Bro M.D. Breo [id number]/Act Aerosol inhale 1 puff by mouth at the same time every day Dannielle Covington, EM Propranolol HCL ER80mg Caps ER 24HR 1 by mouth every day 90caps Yandy Bro M.D. Duloxetine AWG60ly Caps DR Part 1 by mouth every day Yandy Bro M.D. Rosuvastatin Yzwgkmk94to Tablets 1 by mouth every day Judson Carrillo M.D Pantoprazole Xfckvx27hq Tablets DR 1 by mouth every day 90tabs Yandy Bro M.D. Nortriptyline LSQ39ui Capsules 1 tab by mouth every day at bedtime Yandy Bro M.D. Isosorbide Mononitrate ER60mg Tablets ER 24HR 1 by mouth every day Judson Carrillo M.D Ooyqjwejhhy405qk Tablets 1 by mouth every day Yandy Bro M.D. Ybameub01ge Tablets Unknown Metformin EZE172dr Tablets take 1 tablet by mouth twice [...] D deficiency has been defined by the [place] [employer] and an Endocrine Society practice guideline as a level of serum 25-OH vitamin D less than 20 ng/mL (1,2). The Endocrine Society went on to further define vitamin D insufficiency as a level between 21 and 29 ng/mL (2). 1. IOM ([place] [employer]). 2010. Dietary reference intakes for [...] measured NTx value is <or=38 nM BCE/mM CLEAN UP PERSON, or NTx has decreased >or=30% from baseline.[1] [...]
== END 2025-04-09 10:13 | disposition home or self-care (01) ==
PROVIDERS: PCP Internal Medicine; Visit Provider Nurse Practitioner Family
DX: J45.909 Unspecified asthma, uncomplicated (principal); G47.33 Obstructive sleep apnea (adult) (pediatric); M35.00 Sjogren syndrome, unspecified
CPT/HCPCS: 99214

== ENCOUNTER → 2025-04-09 09:44 | Outpatient (BNVA) | payer MEDICARE, SELFPAY | PROVIDERS: PCP Internal Medicine; Visit Provider Nurse Practitioner Family | DX: J45.909 Unspecified asthma, uncomplicated (principal); Z87.891 Personal history of nicotine dependence; M35.00 Sjogren syndrome, unspecified; G47.33 Obstructive sleep apnea (adult) (pediatric); Z99.89 Dependence on other enabling machines and devices; K21.9 Gastro-esophageal reflux disease without esophagitis; B37.0 Candidal stomatitis; R06.02 Shortness of breath | CPT/HCPCS: 99212 ==